=== PATIENT | female | born 1970 | race African-American/Black ===

== ENCOUNTER 2022-03-30 11:02 | Observation (INO) | payer OTHER ==
[2022-03-30] MEDS ORDERED: ONDANSETRON 4 MG/2 ML VIAL IVP STA (12:37)
[2022-03-30] MEDS ORDERED: diphenhydrAMINE 50 MG/ML 1 ML VIAL IVP STA ×3 (12:37→14:58)
[2022-03-30] MEDS ORDERED: MORPHINE SULFATE 4 MG/ML SYRINGE IV STA (12:37)
[2022-03-30] MEDS ORDERED: SODIUM CHLORIDE 0.9% 1,000 ML IV STA (12:37)
--- NOTE | 2022-03-30 12:48 | ED ---
General Adult HPI - General Chief complaint: Chest Pain Stated complaint: Chest pain Time Seen by Provider: 03/30/22 12:30 Source: patient, EMS, RN notes reviewed, old records reviewed Mode of arrival: EMS Limitations: no limitations - History of Present Illness Initial comments: Jeff is a 52-year-old female with past medical history remarkable for A. fib on eliquis, diabetes, hypertension, heart failure, possible MA 10 years ago, lupus presents emergency Department with 2 primary complaints. Initial, primary complaint is right-sided flank pain and abdominal pain with dysuria. She states she has had kidney stones before and this is what it is felt like in the past. Describes the pain as sharp, radiating towards her groin. Nurse's a burning sensation when she PT is. Uncertain of hematuria. Denies pain . Nurses mild nausea but no vomiting. No change in bowel habits. No shortness of breath, fevers, chills, cough. Patient does have a history cholecystectomy and hysterectomy. Patient is also complaining of a chest pressure sensation located over the left side of her chest occurred 2 hours prior to arrival. She did take nitro at that time with no change in symptoms. States the pain is improved at this time, however still mildly persistent. Denies any history of cardiac stents. His no other acute complaints at this time. Presents for further evaluation at this time. - Related Data Home Medications Medication Instructions Recorded Confirmed Apixaban [Eliquis] 5 mg PO BID 03/30/22 03/30/22 Aspirin 81 mg PO DAILY 03/30/22 03/30/22 Atorvastatin [Lipitor] 80 mg PO HS 03/30/22 03/30/22 Budesonide-Formot 160-4.5 Mcg 2 puff INHALATION RT-BID 03/30/22 03/30/22 [Symbicort 160-4.5 Mcg Inhaler] Carvedilol [Coreg] 25 mg PO BID 03/30/22 03/30/22 Colace 50mg 50 mg PO DAILY 03/30/22 03/30/22 DULoxetine HCL [Cymbalta] 30 mg PO DAILY 03/30/22 03/30/22 Diltiazem HCl [Cardizem CD] 120 mg PO DAILY 03/30/22 03/30/22 INSULIN LISPRO (HumaLOG) [humaLOG] 12 units SQ TID-W/MEALS 03/30/22 03/30/22 Insulin Glargine,Hum.rec.anlog 36 units SQ HS 03/30/22 03/30/22 [Lantus Solostar Pen] Isosorbide Mononitrate ER [Imdur] 30 mg PO DAILY 03/30/22 03/30/22 Levothyroxine Sodium [Synthroid] 50 mcg PO DAILY 03/30/22 03/30/22 Loratadine 10 mg PO DAILY 03/30/22 03/30/22 Lurasidone [Latuda] 20 mg PO BID 03/30/22 03/30/22 Mesalamine [Lialda] 2.4 gm PO DAILY 03/30/22 03/30/22 hydroCHLOROthiazide 25 mg PO DAILY 03/30/22 03/30/22 levETIRAcetam [Keppra] 1,000 mg PO BID 03/30/22 03/30/22 lisinopriL [Prinivil] 20 mg PO DAILY 03/30/22 03/30/22 traZODone HCL 150 mg PO HS 03/30/22 03/30/22 Allergies Allergy/AdvReac Type Severity Reaction Status Date / Time acetaminophen [From Tylenol] Allergy Anaphylaxis Verified 03/30/22 15:18 & Itching & Hives dicyclomine [From Bentyl] Allergy Anaphylaxis Verified 03/30/22 15:18 Fish Containing Products Allergy Anaphylaxis Verified 03/30/22 15:18 [Fish] & Itching & Hives ibuprofen [From Motrin] Allergy Anaphylaxis Verified 03/30/22 15:18 & Itching & Hives Iodinated Contrast Media Allergy Itching Verified 03/30/22 15:18 ketorolac [From Toradol] Allergy Anaphylaxis Verified 03/30/22 15:18 tramadol Allergy Anaphylaxis Verified 03/30/22 15:18 & Itching & Hives Review of Systems ROS Statement: Those systems with pertinent positive or pertinent negative responses have been documented in the HPI. Review of Systems: CONST: Denies fever EYES: Denies blurry vision ENT: Denies nasal congestion C/V: Endorses improving chest pain. RESP: Denies shortness of breath GI: Endorses Right flank pain. : Endorses dysuria SKIN: Denies rash. MSK: Denies joint pain. NEURO: Denies headache ROS Other: All systems not noted in ROS Statement are negative. Past Medical History Past Medical History: Atrial Fibrillation, Blood Disorder, Heart Failure, Diabetes Mellitus, Hypertension, Myocardial Infarction ([place]) Additional Past Medical History / Comment(s): factor 5, lupus , anemia History of Any Multi-Drug Resistant Organisms: None Reported Past Surgical History: Cholecystectomy, Hysterectomy Past Psychological History: No Psychological Hx Reported Smoking Status: Current every day smoker Past Alcohol Use History: Abuse, Daily Past Drug Use History: None Reported General Exam - General Exam Comments Initial Comments: General: Appears in mild distress secondary to right flank pain. HEAD: Normal with no signs of head trauma. EYES: PERRLA, EOMI, conjunctiva normal, no discharge. ENT: Hearing grossly intact, normal oropharynx. RESPIRATORY: Clear breath sounds bilaterally. No wheezes, rales, or rhonchi. C/V: Regular rate and rhythm. S1 and S2 auscultated, no edema, peripheral pulses 2+ and intact throughout. Chest pain is not reproducible on palpation. Chest pain is nonreproducible on the trunk or extremities. Patient has a right chest port for iron infusions. ABD: Abdomen is soft, nondistended. Mild tenderness palpation over the right flank. Mild right CVA tenderness to percussion. Mild suprapubic tenderness to palpation. No guarding. No peritoneal signs. No rebound tenderness. EXT: Normal range of motion, no obvious deformity SKIN: No rashes or lesions observed on exposed skin. NEURO: Alert and oriented 4. Limitations: no limitations Course Vital Signs 03/30/22 03/30/22 03/30/22 11:11 13:40 15:04 Temperature 97.7 F Pulse Rate 74 74 69 Respiratory 20 18 18 Rate Blood Pressure 114/59 111/64 146/84 O2 Sat by Pulse 99 98 100 Oximetry 03/30/22 16:34 Temperature 97.7 F Pulse Rate 78 Respiratory 18 Rate Blood Pressure 135/74 O2 Sat by Pulse 99 Oximetry Medical Decision Making - Medical Decision Making Based on the patient's presentation and physical exam, patient is having mild chest pain as well as right-sided flank pain. Concern for cardiopulmonary etiology as well as possible kidney stone or other abdominal pathology. We'll obtain abdominal labs as well as cardiac labs. She attempted nitro x3 at home with no effect. She'll be given IV morphine at her request. She also received aspirin. She was in agreement this plan. EKG showed no signs of acute ischemia.Patient's laboratory studies were unremarkable including a troponin that is undetectable, urinalysis that shows no signs of blood, relatively normal kidney function. Ultrasound showed no bladder or renal abnormality. Chest x-ray showed no acute cardiopulmonary process. On reevaluation come patient is requesting more pain medications for her right flank pain. Chest pain at this time is improved. I did get her on the results were normal workup. Due to his cut her cardiac history she will be admitted at least observation for monitoring, however we will obtain a CT abdomen and pelvis to ensure we are not missing an intra-abdominal process and she was in agreement this plan. She states she does have a history of ALLERGY to contrast dye, and therefore will be given pretreatment with famotidine, Benadryl, slightly Medrol. Shortly after completing the CT, patient stated that she was itchy all over, was feeling slightly short of breath. She no stridor, no tongue swelling, no wheezing, no rashes. She'll be given an additional 25 mg of Benadryl and observed. On reevaluation, patient is requesting more pain medication for abdomen. Chest pain is improved at this time. CT abdomen and pelvis revealed no acute intra- abdominal process. She did have an indeterminate right adrenal lesion which is unlikely the source of her pain. Recommend close follow-up. I discussed this with the patient. She also some stool burden which could be causing her abdominal pain from constipation. Discussed results with the patient and she expressed understanding. Patient will be admitted to observation telemetry at this time. I spoke with the admitting physician, Dr. Dinero who accepted the patient. - Lab Data Result diagrams: 03/30/22 12:42 03/30/22 12:42 Lab Results 03/30/22 03/30/22 03/30/22 Range/Units 12:42 12:42 12:42 WBC 4.4 (3.8-10.6) k/uL RBC 3.74 L (3.80-5.40) m/uL Hgb 11.7 (11.4-16.0) gm/dL Hct 35.6 (34.0-46.0) % MCV 95.1 (80.0-100.0) fL MCH 31.3 (25.0-35.0) pg MCHC 32.9 (31.0-37.0) g/dL RDW 13.1 (11.5-15.5) % Plt Count 270 (150-450) k/uL MPV 7.1 Neutrophils % 61 % Lymphocytes % 26 % Monocytes % 6 % Eosinophils % 3 % Basophils % 0 % Neutrophils # 2.7 (1.3-7.7) k/uL Lymphocytes # 1.2 (1.0-4.8) k/uL Monocytes # 0.3 (0-1.0) k/uL Eosinophils # 0.1 (0-0.7) k/uL Basophils # 0.0 (0-0.2) k/uL PT 9.9 (9.0-12.0) sec INR 0.9 (<1.2) APTT 26.7 (22.0-30.0) sec D-Dimer (<0.60) mg/L FEU Sodium (137-145) mmol/L Potassium (3.5-5.1) mmol/L Chloride (98-107) mmol/L Carbon Dioxide (22-30) mmol/L Anion Gap mmol/L BUN (7-17) mg/dL Creatinine (0.52-1.04) mg/dL Est GFR (CKD-EPI)AfAm (>60 ml/min/1.73 sqM) Est GFR (CKD-EPI)NonAf (>60 ml/min/1.73 sqM) Glucose (74-99) mg/dL Calcium (8.4-10.2) mg/dL Magnesium (1.6-2.3) mg/dL Total Bilirubin (0.2-1.3) mg/dL AST (14-36) U/L ALT (4-34) U/L Alkaline Phosphatase (38-126) U/L Troponin I (0.000-0.034) ng/mL Total Protein (6.3-8.2) g/dL Albumin (3.5-5.0) g/dL Amylase (30-110) U/L Lipase (23-300) U/L Urine Color Light Yellow Urine Appearance Clear (Clear) Urine pH 6.5 (5.0-8.0) Ur Specific [place] 1.013 (1.001-1.035) Urine Protein Negative (Negative) Urine Glucose (UA) Negative (Negative) Urine Ketones Negative (Negative) Urine Blood Negative (Negative) Urine Nitrite Negative (Negative) Urine Bilirubin Negative (Negative) Urine Urobilinogen <2.0 (<2.0) mg/dL Ur Leukocyte Esterase Negative (Negative) Urine HCG, Qual (Not Detectd) 03/30/22 03/30/22 03/30/22 Range/Units 12:42 12:42 12:42 WBC (3.8-10.6) k/uL RBC (3.80-5.40) m/uL Hgb (11.4-16.0) gm/dL Hct (34.0-46.0) % MCV (80.0-100.0) fL MCH (25.0-35.0) pg MCHC (31.0-37.0) g/dL RDW (11.5-15.5) % Plt Count (150-450) k/uL MPV Neutrophils % % Lymphocytes % % Monocytes % % Eosinophils % % Basophils % % Neutrophils # (1.3-7.7) k/uL Lymphocytes # (1.0-4.8) k/uL Monocytes # (0-1.0) k/uL Eosinophils # (0-0.7) k/uL Basophils # (0-0.2) k/uL PT (9.0-12.0) sec INR (<1.2) APTT (22.0-30.0) sec D-Dimer (<0.60) mg/L FEU Sodium 139 (137-145) mmol/L Potassium 4.2 (3.5-5.1) mmol/L Chloride 106 (98-107) mmol/L Carbon Dioxide 28 (22-30) mmol/L Anion Gap 5 mmol/L BUN 12 (7-17) mg/dL Creatinine 0.78 (0.52-1.04) mg/dL Est GFR (CKD-EPI)AfAm >90 (>60 ml/min/1.73 sqM) Est GFR (CKD-EPI)NonAf 89 (>60 ml/min/1.73 sqM) Glucose 75 (74-99) mg/dL Calcium 8.8 (8.4-10.2) mg/dL Magnesium 1.9 (1.6-2.3) mg/dL Total Bilirubin 0.3 (0.2-1.3) mg/dL AST 15 (14-36) U/L ALT 22 (4-34) U/L Alkaline Phosphatase 108 (38-126) U/L Troponin I <0.012 (0.000-0.034) ng/mL Total Protein 5.7 L (6.3-8.2) g/dL Albumin 3.4 L (3.5-5.0) g/dL Amylase 77 (30-110) U/L Lipase 64 (23-300) U/L Urine Color Urine Appearance (Clear) Urine pH (5.0-8.0) Ur Specific [place] (1.001-1.035) Urine Protein (Negative) Urine Glucose (UA) (Negative) Urine Ketones (Negative) Urine Blood (Negative) Urine Nitrite (Negative) Urine Bilirubin (Negative) Urine Urobilinogen (<2.0) mg/dL Ur Leukocyte Esterase (Negative) Urine HCG, Qual Not Detected (Not Detectd) 03/30/22 Range/Units 12:43 WBC (3.8-10.6) k/uL RBC (3.80-5.40) m/uL Hgb (11.4-16.0) gm/dL Hct (34.0-46.0) % MCV (80.0-100.0) fL MCH (25.0-35.0) pg MCHC (31.0-37.0) g/dL RDW (11.5-15.5) % Plt Count (150-450) k/uL MPV Neutrophils % % Lymphocytes % % Monocytes % % Eosinophils % % Basophils % % Neutrophils # (1.3-7.7) k/uL Lymphocytes # (1.0-4.8) k/uL Monocytes # (0-1.0) k/uL Eosinophils # (0-0.7) k/uL Basophils # (0-0.2) k/uL PT (9.0-12.0) sec INR (<1.2) APTT (22.0-30.0) sec D-Dimer <0.17 (<0.60) mg/L FEU Sodium (137-145) mmol/L Potassium (3.5-5.1) mmol/L Chloride (98-107) mmol/L Carbon Dioxide (22-30) mmol/L Anion Gap mmol/L BUN (7-17) mg/dL Creatinine (0.52-1.04) mg/dL Est GFR (CKD-EPI)AfAm (>60 ml/min/1.73 sqM) Est GFR (CKD-EPI)NonAf (>60 ml/min/1.73 sqM) Glucose (74-99) mg/dL Calcium (8.4-10.2) mg/dL Magnesium (1.6-2.3) mg/dL Total Bilirubin (0.2-1.3) mg/dL AST (14-36) U/L ALT (4-34) U/L Alkaline Phosphatase (38-126) U/L Troponin I (0.000-0.034) ng/mL Total Protein (6.3-8.2) g/dL Albumin (3.5-5.0) g/dL Amylase (30-110) U/L Lipase (23-300) U/L Urine Color Urine Appearance (Clear) Urine pH (5.0-8.0) Ur Specific [place] (1.001-1.035) Urine Protein (Negative) Urine Glucose (UA) (Negative) Urine Ketones (Negative) Urine Blood (Negative) Urine Nitrite (Negative) Urine Bilirubin (Negative) Urine Urobilinogen (<2.0) mg/dL Ur Leukocyte Esterase (Negative) Urine HCG, Qual (Not Detectd) - EKG Data -: EKG Interpreted by Me EKG Comments: 12-lead Electrocardiogram Interpretation Note EKG was reviewed and interpreted by myself. 12-lead ECG performed at 1110 is interpreted by me as revealing normal sinus rhythm at a rate of 67 beats per minute. [place] is normal. [place] interval is 193 ms, QRS duration is 96 ms, QTc is 402 ms.. There is an isolated T-wave inversion in lead III. Slight J-point elevation in lateral precordial leads. Otherwise no acute ST segment T wave abnormalities to suggest acute ischemia.. R wave progression across the precordium was satisfactory. By my interpretation this EKG is non-diagnostic for acute ischemia. No Prior EKG for comparison. Disposition Clinical Impression: Chest pain, Abdominal pain Disposition: ADMITTED IP TO THIS HOSP Condition: Stable Is patient prescribed a controlled substance at d/c from ED?: No Time of Disposition: 15:45
[2022-03-30 12:55] LABS: Basophils % (A) 0 %; Eosinophils # (A) 0.1 k/uL (0-0.7); Eosinophils % (A) 3 %; HCT 35.6 % (34.0-46.0); HGB 11.7 gm/dL (11.4-16.0); Lymphocytes # (A) 1.2 k/uL (1.0-4.8); Lymphocytes % (A) 26 %; MCH 31.3 pg (25.0-35.0); MCHC 32.9 g/dL (31.0-37.0); MCV 95.1 fL (80.0-100.0); Mean Platelet Volume 7.1; Monocytes # (A) 0.3 k/uL (0-1.0); Monocytes % (A) 6 %; Neutrophils # (A) 2.7 k/uL (1.3-7.7); Neutrophils % (A) 61 %; Platelet Count 270 k/uL (150-450); RBC 3.74 m/uL (3.80-5.40); RDW 13.1 % (11.5-15.5); WBC 4.4 k/uL (3.8-10.6)
[2022-03-30 13:02] LABS: INR 0.9 (<1.2)
--- NOTE | 2022-03-30 13:02 | XR ---
EXAMINATION TYPE: XR chest 2V DATE OF EXAM: 03/30/2022 COMPARISON: None HISTORY: Chest pain TECHNIQUE: Frontal and lateral views of the chest are obtained. FINDINGS: There is a Mediport catheter on the right tip of which is in the SVC/RA junction. The lungs are clear of consolidative, interstitial or masslike opacity. There is no pleural effusion, pleural thickening or pneumothorax. The heart, pulmonary vasculature, mediastinum and hilum are normal. The osseous structures are intact IMPRESSION: No acute cardiopulmonary process.
[2022-03-30 13:03] LABS: Partial Thromboplastin Time 26.7 sec (22.0-30.0); Prothrombin Time 9.9 sec (9.0-12.0)
[2022-03-30 13:04] LABS: Appearance,Urine Clear (Clear); Bilirubin,Urine Negative (Negative); Blood,Urine Negative (Negative); Color,Urine Light Yellow; Glucose,Urine (UA) Negative (Negative); Ketones,Urine Negative (Negative); Leukocyte Esterase,Urine Negative (Negative); Nitrite,Urine Negative (Negative); PH, Urine 6.5 (5.0-8.0); Protein,Urine Negative (Negative); Specific Gravity,Urine 1.013 (1.001-1.035); Urobilinogen,Urine <2.0 mg/dL (<2.0)
[2022-03-30 13:10] LABS: ALT 22 U/L (4-34); AST 15 U/L (14-36); African American GFR (CKD) >90 (>60 ml/min/1.73 sqM); Albumin 3.4 g/dL (3.5-5.0); Alkaline Phosphatase 108 U/L (38-126); Amylase 77 U/L (30-110); Anion Gap 5 mmol/L; Blood Urea Nitrogen 12 mg/dL (7-17); Calcium 8.8 mg/dL (8.4-10.2); Carbon Dioxide 28 mmol/L (22-30); Chloride 106 mmol/L (98-107); Glucose 75 mg/dL (74-99); Lipase 64 U/L (23-300); Magnesium 1.9 mg/dL (1.6-2.3); Non-African American GFR(CKD) 89 (>60 ml/min/1.73 sqM); Potassium 4.2 mmol/L (3.5-5.1); Sodium 139 mmol/L (137-145); Total Bilirubin 0.3 mg/dL (0.2-1.3); Total Protein 5.7 g/dL (6.3-8.2)
--- NOTE | 2022-03-30 13:45 | US ---
EXAMINATION TYPE: US renals and bladder DATE OF EXAM: 03/30/2022 COMPARISON: NONE CLINICAL HISTORY: left sided flank pain, eval for hydronephrosis. Hx renal stones. EXAM MEASUREMENTS: Right Kidney: 8.6 x 4.0 x 3.7 cm Left Kidney: 9.8 x 4.9 x 4.0 cm Limited due to bowel gas Right Kidney: No hydronephrosis or masses seen Left Kidney: No hydronephrosis or masses seen Bladder: distended, anechoic Bilateral Jets not seen There is no evidence for hydronephrosis at this point in time. No nephrolithiasis is seen. No alden s are identified. The urinary bladder is anechoic. IMPRESSION: No renal calcifications or hydronephrosis.
[2022-03-30] MEDS ORDERED: MORPHINE SULFATE 4 MG/ML SYRINGE IVP STA (13:53)
[2022-03-30] MEDS ORDERED: methylPREDNISolone SOD SUCCI 125 MG/2 ML VIAL IV STA (13:53)
[2022-03-30] MEDS ORDERED: FAMOTIDINE 20 MG/2 ML VIAL IV STA (13:53)
--- NOTE | 2022-03-30 15:38 | CT ---
EXAMINATION TYPE: CT abdomen pelvis w con CT DLP: 1703.3 mGycm, Automated exposure control for dose reduction was used. DATE OF EXAM: 03/30/2022 3:10 PM COMPARISON: None CLINICAL INDICATION:Female, 52 years old with history of abdominal pain, acute, right flank/RLQ; Righ t flank pain TECHNIQUE: Standard CT of the abdomen and pelvis following the administration of 100 cc of Isovue 3 00 IV contrast material. Coronal and sagittal reformats were performed. FINDINGS: LOWER CHEST: Unremarkable ABDOMEN LIVER: Unremarkable GALLBLADDER AND BILE DUCTS: Gallbladder is surgically absent with mild intrahepatic and extra hepatic biliary dilatation likely physiologic and a postcholecystectomy change. No evidence of choledocholit hiasis. PANCREAS: Unremarkable. SPLEEN: Unremarkable. ADRENAL GLANDS: Indeterminate right adrenal lesion measures 17 mm and 22 Hounsfield units. The left a drenal gland is unremarkable. KIDNEYS AND URETERS: No evidence of hydronephrosis or renal calculus. The ureters are unremarkable. PELVIS BLADDER: Unremarkable REPRODUCTIVE: Unremarkable. ABDOMEN & PELVIS STOMACH AND BOWEL: There is a large stool burden throughout the cecum, ascending colon and transverse colon. No evidence of bowel obstruction. Appendix is normal. PERITONEUM: No evidence of pneumoperitoneum or free fluid. VASCULATURE: Mild atherosclerotic calcifications are present throughout the abdominal aorta and its b ranches. MUSCULOSKELETAL: Mild disc degeneration changes are present throughout the thoracolumbar spine.. LYMPH NODES: No gross evidence for lymphadenopathy. SOFT TISSUE/ABDOMINAL WALL: Multiple some injection granulomata within the anterior soft tissues. IMPRESSION: 1. No evidence for appendicitis or obstructive uropathy. Large stool burden throughout the predomina ntly right colon. 2. Indeterminate right adrenal lesion statistically likely represent benign adrenal lipid rich adeno ma in a patient without risk factors. This can be further evaluated with CT/MRI adrenal mass protocol .
[2022-03-30] MEDS ORDERED: NALOXONE 0.4 MG/ML 1 ML VIAL IV PRN (15:59)
[2022-03-30] MEDS ORDERED: SODIUM CHLORIDE 0.9% 1,000 ML IV SCH (16:00)
[2022-03-30] MEDS: MORPHINE SULFATE 4 MG/ML SYRINGE IV PRN ×2 (16:36→20:26)
--- NOTE | 2022-03-30 16:59 | P.HPIM ---
History of Present Illness H&P Date: 03/31/22 Chief Complaint: Chest pain This 52-year-old black female who reported to the hospital with chest pain. She is presently pain as substernal, moderate in severity, sharp. Pain has been improved and decreased to 3/10. She denies shortness of breath. She also reports abdominal pain described as flank and abdomen radiating to the groin area mostly on the right side. She states that she has history of kidney stones and this appears to be similar. She also reports an episode of nausea and vomiting. She reports a temperature 100 at home. She denies dizziness or loss of consciousness. At the time of examination patient appears to be comfortable and does not appear to be in distress. Review of Systems Systems reviewed, pertinent positive and negative findings as in HPI. Chest pain and abdominal pain. Past Medical History Past Medical History: Atrial Fibrillation, Blood Disorder, Heart Failure, Diabetes Mellitus, Hypertension, Myocardial Infarction ([place]) Additional Past Medical History / Comment(s): factor 5, lupus , anemia History of Any Multi-Drug Resistant Organisms: None Reported Past Surgical History: Cholecystectomy, Hysterectomy Past Psychological History: No Psychological Hx Reported Smoking Status: Current every day smoker Past Alcohol Use History: Abuse, Daily Past Drug Use History: None Reported Medications and Allergies Home Medications Medication Instructions Recorded Confirmed Type Apixaban [Eliquis] 5 mg PO BID 03/30/22 03/30/22 History Aspirin 81 mg PO DAILY 03/30/22 03/30/22 History Atorvastatin [Lipitor] 80 mg PO HS 03/30/22 03/30/22 History Budesonide-Formot 160-4.5 Mcg 2 puff INHALATION RT-BID 03/30/22 03/30/22 History [Symbicort 160-4.5 Mcg Inhaler] Carvedilol [Coreg] 25 mg PO BID 03/30/22 03/30/22 History Colace 50mg 50 mg PO DAILY 03/30/22 03/30/22 History DULoxetine HCL [Cymbalta] 30 mg PO DAILY 03/30/22 03/30/22 History Diltiazem HCl [Cardizem CD] 120 mg PO DAILY 03/30/22 03/30/22 History INSULIN LISPRO (HumaLOG) [humaLOG] 12 units SQ TID-W/MEALS 03/30/22 03/30/22 History Insulin Glargine,Hum.rec.anlog 36 units SQ HS 03/30/22 03/30/22 History [Lantus Solostar Pen] Isosorbide Mononitrate ER [Imdur] 30 mg PO DAILY 03/30/22 03/30/22 History Levothyroxine Sodium [Synthroid] 50 mcg PO DAILY 03/30/22 03/30/22 History Loratadine 10 mg PO DAILY 03/30/22 03/30/22 History Lurasidone [Latuda] 20 mg PO BID 03/30/22 03/30/22 History Mesalamine [Lialda] 2.4 gm PO DAILY 03/30/22 03/30/22 History hydroCHLOROthiazide 25 mg PO DAILY 03/30/22 03/30/22 History levETIRAcetam [Keppra] 1,000 mg PO BID 03/30/22 03/30/22 History lisinopriL [Prinivil] 20 mg PO DAILY 03/30/22 03/30/22 History traZODone HCL 150 mg PO HS 03/30/22 03/30/22 History Allergies Allergy/AdvReac Type Severity Reaction Status Date / Time acetaminophen [From Tylenol] Allergy Anaphylaxis Verified 03/30/22 15:18 & Itching & Hives dicyclomine [From Bentyl] Allergy Anaphylaxis Verified 03/30/22 15:18 Fish Containing Products Allergy Anaphylaxis Verified 03/30/22 15:18 [Fish] & Itching & Hives ibuprofen [From Motrin] Allergy Anaphylaxis Verified 03/30/22 15:18 & Itching & Hives Iodinated Contrast Media Allergy Itching Verified 03/30/22 15:18 ketorolac [From Toradol] Allergy Anaphylaxis Verified 03/30/22 15:18 tramadol Allergy Anaphylaxis Verified 03/30/22 15:18 & Itching & Hives Physical Exam Vitals: Vital Signs Temp Pulse Resp BP Pulse Ox 03/30/22 16:34 97.7 F 78 18 135/74 99 03/30/22 15:04 69 18 146/84 100 03/30/22 13:40 74 18 111/64 98 03/30/22 11:11 97.7 F 74 20 114/59 99 Intake and Output 03/30/22 03/30/22 03/30/22 06:59 14:59 22:59 Other: Weight 99.79 kg Constitutional: No acute distress, conversant, pleasant Eyes: Anicteric sclerae, moist conjunctiva, no lid-lag, PERRLA ENMT: NC/AT,Oropharynx clear, no erythema, exudates Neck:Supple, FROM, no masses, or JVD, No carotid bruits; No thyromegaly Lungs: Clear to auscultation, Clear to percussion, Normal respiratory effort, no accessory muscle use Cardiovascular: Heart regular in rate and rhythm, No murmurs, gallops, or rubs no peripheral edema Abdominal: Soft Nontender, non distended, no guarding, no rebound or rigidity, Normoactive bowel sounds No hepatomegaly, No splenomegaly, No palpable mass Skin: Normal temperature, tone, texture, turgor, No induration Extremities:No digital cyanosis No clubbing, Pedal pulses intact and symmetrical Radial pulses intact and symmetrical Normal gait and station, No calf tenderness Psychiatric: Alert and oriented to person, place and time, Appropriate affect Intact judgement Neuro: Muscles Strength 5/5 in all 4 extremities, Sensation to light touch grossly present throughout, Cranial nerves II-XII grossly intact. No focal sensory deficits Results CBC & Chem 7: 03/30/22 12:42 03/30/22 12:42 Labs: Abnormal Lab Results - Last 24 Hours (Table) 03/30/22 03/30/22 Range/Units 12:42 12:42 RBC 3.74 L (3.80-5.40) m/uL Total Protein 5.7 L (6.3-8.2) g/dL Albumin 3.4 L (3.5-5.0) g/dL Assessment and Plan Plan: 1. Chest pain likely atypical: Negative troponin, continue on telemetry, continue to check cardiac enzymes. Check d-dimer. If needed We will consult with cardiology. 2. Right flank pain unspecified etiology: Abdominal CT consistent with large stool burden, continue supportive care. Start lactulose. No evidence of a colicky attack. 3. Suspected benign adrenal adenoma: Follow-up as an outpatient 4. Diabetes type 1 without complications: Continue on insulin, she is on insulin pump. Continue on sliding scale. 5. Chronic fibrillation: Continue adequacy and aspirin and Cardizem. 6. essential hypertension: Continue lisinopril, HCTZ and Cardizem. 7. Hypothyroidism: Continue Synthroid 8. History of SLE: Follow-up as an outpatient. 9. Hyperlipidemia: Continue statin 10. Depression: Continue Cymbalta DVT prophylaxis: SCDs Disposition: Home likely tomorrow if remains stable.
[2022-03-30 17:34] LABS: Glucose,Whole Blood 210 mg/dL (75-99)
[2022-03-30] MEDS: diphenhydrAMINE 50 MG/ML 1 ML VIAL IVP PRN (19:38)
[2022-03-30] MEDS: INSULIN DETEMIR (LEVEMIR) 100 UNIT/ML SYR SQ SCH (19:41)
[2022-03-30] MEDS: INSULIN ASPART (NovoLOG) 100 UNIT/ML VIAL SQ SCH ×3 (19:41→19:43)
[2022-03-30] MEDS: LACTULOSE 20 GM/30 ML CUP PO SCH (19:42)
[2022-03-30] MEDS: SYMBICORT 160-4.5 MCG INHALER INHALATION SCH (20:00)
[2022-03-30] MEDS: APIXABAN 5 MG TAB PO SCH (20:25)
[2022-03-30] MEDS: levETIRAcetam 500 MG TAB PO SCH (20:25)
[2022-03-30] MEDS: LURASIDONE 20 MG TAB PO SCH (20:25)
[2022-03-30] MEDS: carvediloL 12.5 MG TAB PO SCH (20:25)
[2022-03-30] MEDS: ATORVASTATIN 80 MG TAB PO SCH (20:25)
[2022-03-30] MEDS: traZODone HCL 50 MG TAB PO SCH (20:27)
[2022-03-30] MEDS: LORATADINE 10 MG TAB PO SCH ×2 (20:32→20:33)
[2022-03-30] MEDS: DOCUSATE ORAL SOLN 100 MG/10 ML CUP PO SCH (20:33)
[2022-03-30 21:38] LABS: Glucose,Whole Blood 470 mg/dL (75-99)
[2022-03-31] MEDS: MORPHINE SULFATE 4 MG/ML SYRINGE IV PRN ×6 (00:24→23:36)
[2022-03-31] MEDS: diphenhydrAMINE 50 MG/ML 1 ML VIAL IVP PRN ×4 (01:17→19:34)
--- NOTE | 2022-03-31 07:18 | XR ---
Left knee HISTORY: Pain following fall. COMPARISON: None. TECHNIQUE: 3 views left knee were obtained FINDINGS: There is no acute trauma with no evidence of fracture or dislocation. There is mild osteoarthritic change of the medial and lateral compartments of the knee were there is mild hypertrophic spurring and possibly mild joint space narrowing. There are no focal intraosseous a bnormalities. IMPRESSION: 1. Mild osteoarthritic change. 2. no evidence of acute trauma.
[2022-03-31 07:19] LABS: Glucose,Whole Blood 524 mg/dL (75-99)
--- NOTE | 2022-03-31 07:19 | XR ---
Left humerus. HISTORY: Trauma COMPARISON: None. TECHNIQUE: 3 views left humerus are obtained. FINDINGS: There is no fracture or focal intraosseous abnormality. The cortex is intact. There is no radiopaque foreign body or abnormal soft tissue calcification. IMPRESSION: No significant abnormality seen.
--- NOTE | 2022-03-31 07:21 | XR ---
Left hip HISTORY: Trauma COMPARISON: None TECHNIQUE: 2 views left hip were obtained. FINDINGS: There is no fracture, dislocation, intraosseous or intra-articular abnormality. The soft tissues are normal. IMPRESSION: No significant abnormality seen.
--- NOTE | 2022-03-31 07:23 | CT ---
EXAMINATION TYPE: CT brain wo con DATE OF EXAM: 03/31/2022 COMPARISON: None HISTORY: Fall CT DLP: 981.7 mGycm Automated exposure control for dose reduction was used. FINDINGS: The ventricles, basal cisterns and sulci over the convexities are within normal limits and there is n o mass effect or shift of the midline structures. There is no abnormal density within the brain parenchyma and there is no acute intra or extra-axial h emorrhage. The posterior fossa is grossly normal. The intraorbital contents appear normal and symmetric. Paranasal sinuses and mastoid air cells are well aerated. The calvarium is intact IMPRESSION: NO SIGNIFICANT ABNORMALITY SEEN.
[2022-03-31] MEDS: LEVOTHYROXINE 50 MCG TAB PO SCH (07:28)
[2022-03-31] MEDS: INSULIN ASPART (NovoLOG) 100 UNIT/ML VIAL SQ SCH ×7 (07:32→20:19)
[2022-03-31] MEDS ORDERED: MORPHINE SULFATE 2 MG/ML SYRINGE IVP STA (07:34)
[2022-03-31] MEDS: DOCUSATE ORAL SOLN 100 MG/10 ML CUP PO SCH (08:48)
[2022-03-31] MEDS: DILTIAZEM CD 120 MG CAP.ER.24H PO SCH (08:48)
[2022-03-31] MEDS: BALSALAZIDE DISODIUM 750 MG CAPSULE PO SCH ×3 (08:48→19:33)
[2022-03-31] MEDS: ISOSORBIDE MONONITRATE ER 30 MG TAB.ER.24H PO SCH (08:49)
[2022-03-31] MEDS: APIXABAN 5 MG TAB PO SCH ×2 (08:49→19:30)
[2022-03-31] MEDS: DULoxetine HCL 30 MG CAPSULE.DR PO SCH (08:49)
[2022-03-31] MEDS: ASPIRIN 81 MG PO SCH (08:49)
[2022-03-31] MEDS: carvediloL 12.5 MG TAB PO SCH ×2 (08:49→19:30)
[2022-03-31] MEDS: levETIRAcetam 500 MG TAB PO SCH ×2 (08:49→19:31)
[2022-03-31] MEDS: LURASIDONE 20 MG TAB PO SCH ×2 (08:49→19:31)
[2022-03-31] MEDS: LACTULOSE 20 GM/30 ML CUP PO SCH ×2 (08:50→19:31)
[2022-03-31] MEDS: lisinopriL 20 MG TAB PO SCH (08:50)
[2022-03-31] MEDS: SYMBICORT 160-4.5 MCG INHALER INHALATION SCH ×2 (09:22→20:13)
[2022-03-31] MEDS: hydroCHLOROthiazide 25 MG TAB PO SCH (10:33)
--- NOTE | 2022-03-31 11:09 | P.CRDCN ---
History of Present Illness Consult date: 03/31/22 Consult reason: chest pain History of present illness: This is Benajmin Oseguera NP, I'm dictating on behalf of Dr. Blackmon's H&P and A&P The patient was interviewed and examined. HPI: Patient is a pleasant 52-year-old female who initially presented to the hospital with complaints of flank abdominal pain, with intermittent chest pain. Patient states that she started with abdominal pain a couple days ago, and in the emergency department to determine that she must have a small kidney stone. She also states that she's had chest pain since yesterday, with subsequent left arm intermittent numbness, with pressure under her left breast. Patient has a past medical history that includes A. fib, diabetes, hypertension, heart failure, possible [place], Lupus, and history of substance use. Patient reports today that she's continues to have the arm numbness and pressure under her breast. She denies shortness of breath, dizziness, syncope, or blurry vision. ROS: [No fever, chills, or rigors] [no cough, phlegm, or expectoration] [no nausea, vomiting, or diarrhea] [no hematuria, dysuria] [no musculoskelatal complaints] [no strokes or seizures] [no skin lesions] EXAMINATION: GENERAL: Well-appearing, well-nourished and in no acute distress. NECK: Supple without JVD or thyromegaly. LUNGS: Breath sounds clear to auscultation bilaterally. Respiration equal and unlabored. No wheezes, rales or rhonchi. HEART: Regular rate and rhythm without murmurs, rubs or gallops. S1 and S2 heard. EXTREMITIES: Normal range of motion, no edema. No clubbing or cyanosis. Peripheral pulses intact and strong. REVIEW OF LABS, ECG & MEDICAL DATA: LABS: White count 4.4, hemoglobin 11.7, d-dimer less than 0.17, sodium 139, potassium 4.2, B1 12, creatinine 0.78, magnesium 1.9, troponin 3-less than 0.012 EKG: Normal sinus rhythm IMAGING: Chest x-ray dated 03/30/2022 demonstrates no acute cardio pulmonate process. Renal ultrasound dated 03/30/2022 demonstrates no renal calcifications or hydronephrosis. CT of the abdomen/pelvis dated 03/30/2022 demonstrates no evidence for appendicitis or obstructive uropathy, large stool burden throughout the predominantly right colon; indeterminate right adrenal lesion statistically likely representing benign adrenal lipid rich adenoma in a patient without risk factors. Left knee x-ray dated 03/31/2022 demonstrates mild osteoarthritic changes, with no evidence of acute trauma. X-ray of the left humerus stated 03/31/2022 demonstrates no significant abnormality seen. X-ray of the left hip dated 03/31/2022 demonstrates no significant abnormality seen. CT of the brain dated 03/31/2022 demonstrates no significant abnormality seen. VITALS: Temp 97.9, pulse 91, blood pressure 136/70, O2 saturation 98% on room air IMPRESSION/PLAN: 1. Chest pain-atypical in nature, no criteria for acute [place] secondary to negative troponins and no EKG changes. We'll schedule for a dobutamine stress test tomorrow morning. Recheck troponin in a.m. Continue Imdur. 2. Hypertension-continue lisinopril as ordered. 3. History of pulmonary embolism-continue apixaban, aspirin as ordered. 4. Atrial fibrillation-continue carvedilol and diltiazem as ordered. Thank you for the consult and allowing us to participate in the care of this patient. Past Medical History Past Medical History: Atrial Fibrillation, Blood Disorder, Heart Failure, Diabetes Mellitus, Hypertension, Myocardial Infarction (TN) Additional Past Medical History / Comment(s): factor 5, lupus , anemia Last Myocardial Infarction Date:: unk History of Any Multi-Drug Resistant Organisms: None Reported Past Surgical History: Cholecystectomy, Hysterectomy Past Psychological History: No Psychological Hx Reported Smoking Status: Current every day smoker Past Alcohol Use History: Abuse, Daily Past Drug Use History: None Reported Medications and Allergies Home Medications Medication Instructions Recorded Confirmed Type Apixaban [Eliquis] 5 mg PO BID 03/30/22 03/30/22 History Aspirin 81 mg PO DAILY 03/30/22 03/30/22 History Atorvastatin [Lipitor] 80 mg PO HS 03/30/22 03/30/22 History Budesonide-Formot 160-4.5 Mcg 2 puff INHALATION RT-BID 03/30/22 03/30/22 History [Symbicort 160-4.5 Mcg Inhaler] Carvedilol [Coreg] 25 mg PO BID 03/30/22 03/30/22 History Colace 50mg 50 mg PO DAILY 03/30/22 03/30/22 History DULoxetine HCL [Cymbalta] 30 mg PO DAILY 03/30/22 03/30/22 History Diltiazem HCl [Cardizem CD] 120 mg PO DAILY 03/30/22 03/30/22 History INSULIN LISPRO (HumaLOG) [humaLOG] 12 units SQ TID-W/MEALS 03/30/22 03/30/22 History Insulin Glargine,Hum.rec.anlog 36 units SQ HS 03/30/22 03/30/22 History [Lantus Solostar Pen] Isosorbide Mononitrate ER [Imdur] 30 mg PO DAILY 03/30/22 03/30/22 History Levothyroxine Sodium [Synthroid] 50 mcg PO DAILY 03/30/22 03/30/22 History Loratadine 10 mg PO DAILY 03/30/22 03/30/22 History Lurasidone [Latuda] 20 mg PO BID 03/30/22 03/30/22 History Mesalamine [Lialda] 2.4 gm PO DAILY 03/30/22 03/30/22 History hydroCHLOROthiazide 25 mg PO DAILY 03/30/22 03/30/22 History levETIRAcetam [Keppra] 1,000 mg PO BID 03/30/22 03/30/22 History lisinopriL [Prinivil] 20 mg PO DAILY 03/30/22 03/30/22 History traZODone HCL 150 mg PO HS 03/30/22 03/30/22 History Allergies Allergy/AdvReac Type Severity Reaction Status Date / Time acetaminophen [From Tylenol] Allergy Anaphylaxis Verified 03/30/22 15:18 & Itching & Hives dicyclomine [From Bentyl] Allergy Anaphylaxis Verified 03/30/22 15:18 Fish Containing Products Allergy Anaphylaxis Verified 03/30/22 15:18 [Fish] & Itching & Hives ibuprofen [From Motrin] Allergy Anaphylaxis Verified 03/30/22 15:18 & Itching & Hives Iodinated Contrast Media Allergy Itching Verified 03/30/22 15:18 ketorolac [From Toradol] Allergy Anaphylaxis Verified 03/30/22 15:18 tramadol Allergy Anaphylaxis Verified 03/30/22 15:18 & Itching & Hives Physical Exam Vitals: Vital Signs Temp Pulse Pulse Resp BP BP Pulse Ox 03/31/22 07:00 97.9 F 91 20 136/70 98 03/31/22 02:20 97.9 F 95 17 121/81 97 03/30/22 20:00 91 03/30/22 19:35 97.4 F L 91 18 155/79 95 03/30/22 17:29 97.6 F 80 17 151/88 94 L 03/30/22 16:34 97.7 F 78 18 135/74 99 03/30/22 15:04 69 18 146/84 100 03/30/22 13:40 74 18 111/64 98 03/30/22 11:11 97.7 F 74 20 114/59 99 Intake and Output 03/30/22 03/31/22 03/31/22 22:59 06:59 14:59 Intake Total 120 Balance 120 Intake: Oral 120 Other: # Voids 1 1 0 Weight 99.79 kg Results 03/30/22 12:42 03/30/22 12:42 Cardiac Enzymes 03/30/22 03/30/22 03/30/22 Range/Units 12:42 12:42 17:14 AST 15 (14-36) U/L Troponin I <0.012 <0.012 (0.000-0.034) ng/mL 03/30/22 Range/Units 20:27 AST (14-36) U/L Troponin I <0.012 (0.000-0.034) ng/mL Coagulation 03/30/22 Range/Units 12:42 PT 9.9 (9.0-12.0) sec APTT 26.7 (22.0-30.0) sec CBC 03/30/22 Range/Units 12:42 WBC 4.4 (3.8-10.6) k/uL RBC 3.74 L (3.80-5.40) m/uL Hgb 11.7 (11.4-16.0) gm/dL Hct 35.6 (34.0-46.0) % Plt Count 270 (150-450) k/uL Comprehensive Metabolic Panel 03/30/22 Range/Units 12:42 Sodium 139 (137-145) mmol/L Potassium 4.2 (3.5-5.1) mmol/L Chloride 106 (98-107) mmol/L Carbon Dioxide 28 (22-30) mmol/L BUN 12 (7-17) mg/dL Creatinine 0.78 (0.52-1.04) mg/dL Glucose 75 (74-99) mg/dL Calcium 8.8 (8.4-10.2) mg/dL AST 15 (14-36) U/L ALT 22 (4-34) U/L Alkaline Phosphatase 108 (38-126) U/L Total Protein 5.7 L (6.3-8.2) g/dL Albumin 3.4 L (3.5-5.0) g/dL Current Medications Generic Name Dose Route Start Last Admin Trade Name Freq PRN Reason Stop Dose Admin Apixaban 5 mg 03/30/22 21:00 03/31/22 08:49 Apixaban 5 Mg Tab PO 5 mg BID MIGNON Administration Protocol Aspirin 81 mg 03/31/22 09:00 03/31/22 08:49 Aspirin 81 Mg PO 81 mg DAILY MIGNON Administration Atorvastatin Calcium 80 mg 03/30/22 21:00 03/30/22 20:25 Atorvastatin 80 Mg Tab PO 80 mg HS MIGNON Administration Balsalazide 2,250 mg 03/31/22 09:00 03/31/22 08:48 Balsalazide Disodium 750 Mg Capsule PO 2,250 mg TID MIGNON Administration Budesonide/Formoterol Fumarate 2 puff 03/30/22 20:00 03/31/22 09:22 Symbicort 160-4.5 Mcg Inhaler INHALATION 2 puff RT-BID MIGNON Administration Carvedilol 25 mg 03/30/22 21:00 03/31/22 08:49 Carvedilol 12.5 Mg Tab PO 25 mg BID MIGNON Administration Diltiazem HCl 120 mg 03/31/22 09:00 03/31/22 08:48 Diltiazem Cd 120 Mg Cap.Er.24h PO 120 mg DAILY MIGNON Administration Diphenhydramine HCl 25 mg 03/30/22 19:32 03/31/22 07:17 Diphenhydramine 50 Mg/Ml 1 Ml Vial IVP 25 mg Q6HR PRN Administration Allergy Symptoms Docusate Sodium 50 mg 03/30/22 17:00 03/31/22 08:48 Docusate Oral Soln 100 Mg/10 Ml Cup PO 50 mg DAILY MGINON Administration Duloxetine HCl 30 mg 03/31/22 09:00 03/31/22 08:49 Duloxetine Hcl 30 Mg Capsule.Dr PO 30 mg DAILY MIGNON Administration Hydrochlorothiazide 25 mg 03/31/22 09:00 Hydrochlorothiazide 25 Mg Tab PO DAILY [facility] Insulin Aspart 12 unit 03/30/22 17:30 03/31/22 07:32 Insulin Aspart (Novolog) 100 Unit/Ml Vial SQ Not Given TID-W/MEALS [facility] Insulin Aspart 0 unit 03/30/22 17:30 03/31/22 07:32 Insulin Aspart (Novolog) 100 Unit/Ml Vial SQ 13.9 unit ACHS [facility] Administration Protocol Insulin Detemir 36 unit 03/30/22 21:00 03/30/22 19:41 Insulin Detemir (Levemir) 100 Unit/Ml Syr SQ Not Given HS [facility] Isosorbide Mononitrate 30 mg 03/31/22 09:00 03/31/22 08:49 Isosorbide Mononitrate Er 30 Mg Tab.Er.24h PO 30 mg DAILY MIGNON Administration Lactulose 20 gm 03/30/22 21:00 03/31/22 08:50 Lactulose 20 Gm/30 Ml Cup PO Not Given BID MIGNON Levetiracetam 1,000 mg 03/30/22 21:00 03/31/22 08:49 Levetiracetam 500 Mg Tab PO 1,000 mg BID MIGNON Administration Levothyroxine Sodium 50 mcg 03/31/22 06:30 03/31/22 07:28 Levothyroxine 50 Mcg Tab PO 50 mcg DAILY@0630 [facility] Administration Lisinopril 20 mg 03/31/22 09:00 03/31/22 08:50 Lisinopril 20 Mg Tab PO 20 mg DAILY [facility] Administration Loratadine 10 mg 03/30/22 17:00 03/30/22 20:33 Loratadine 10 Mg Tab PO 10 mg DAILY [facility] Administration Lurasidone HCl 20 mg 03/30/22 21:00 03/31/22 08:49 Lurasidone 20 Mg Tab PO 20 mg BID MIGNON Administration Morphine Sulfate 4 mg 03/30/22 15:59 03/31/22 04:19 Morphine Sulfate 4 Mg/Ml Syringe IV 4 mg Q4HR PRN Administration Severe Pain Naloxone HCl 0.2 mg 03/30/22 15:59 Naloxone 0.4 Mg/Ml 1 Ml Vial IV Q2M PRN Opioid Reversal Trazodone HCl 150 mg 03/30/22 21:00 03/30/22 20:27 Trazodone Hcl 50 Mg Tab PO Not Given HS MIGNON Intake and Output 03/30/22 03/31/22 03/31/22 22:59 06:59 14:59 Intake Total 120 Balance 120 Intake: Oral 120 Other: # Voids 1 1 0 Weight 99.79 kg 03/30/22 12:42 03/30/22 12:42
[2022-03-31 11:50] LABS: Glucose,Whole Blood 488 mg/dL (75-99)
[2022-03-31 11:58] LABS: Basophils % (A) 0 %; Eosinophils % (A) 0 %; HCT 34.9 % (34.0-46.0); HGB 11.3 gm/dL (11.4-16.0); Lymphocytes # (A) 0.3 k/uL (1.0-4.8); Lymphocytes % (A) 3 %; MCH 31.6 pg (25.0-35.0); MCHC 32.2 g/dL (31.0-37.0); MCV 98.1 fL (80.0-100.0); Monocytes # (A) 0.3 k/uL (0-1.0); Monocytes % (A) 3 %; Neutrophils # (A) 8.9 k/uL (1.3-7.7); Neutrophils % (A) 92 %; Platelet Count 275 k/uL (150-450); RBC 3.56 m/uL (3.80-5.40); WBC 9.7 k/uL (3.8-10.6)
[2022-03-31 12:06] LABS: ALT 27 U/L (4-34); AST 22 U/L (14-36); African American GFR (CKD) >90 (>60 ml/min/1.73 sqM); Albumin 3.6 g/dL (3.5-5.0); Albumin/Globulin Ratio 1.5; Alkaline Phosphatase 175 U/L (38-126); Anion Gap 10 mmol/L; Blood Urea Nitrogen 12 mg/dL (7-17); Calcium 8.8 mg/dL (8.4-10.2); Carbon Dioxide 22 mmol/L (22-30); Chloride 100 mmol/L (98-107); Globulin 2.4 g/dL; Glucose 438 mg/dL (74-99); Non-African American GFR(CKD) 90 (>60 ml/min/1.73 sqM); Potassium 4.7 mmol/L (3.5-5.1); Sodium 132 mmol/L (137-145); Total Bilirubin 0.3 mg/dL (0.2-1.3)
--- NOTE | 2022-03-31 16:27 | P.PN ---
Subjective Progress Note Date: 03/31/22 52-year-old female lives in [facility] she was here at [facility] for alcohol detox. who initially presented to the hospital with complaints of flank abdominal pain, with intermittent chest pain. Patient states that she started with abdominal pain a couple days ago, and in the emergency department to determine that she must have a small kidney stone. She also states that she's had chest pain since yesterday, with subsequent left arm intermittent numbness, with pressure under her left breast. Patient has a past medical history that includes A. fib, diabetes, hypertension, heart failure, possible [place], Lupus, and history of substance use. Patient reports today that she's continues to have the arm numbness and pressure under her breast. She denies shortness of breath, dizziness, syncope, or blurry vision. Subjective Patient seen and evaluated at bedside, today patient does not report any worsening of his breathing or report any new significant chest pain. Patient remains in no acute distress. Patient questions and concerns addressed at bedside, proper counseling done. Plan discussed with nursing staff. Assessment and plan Chest pain Atypical in nature, no criteria for acute [place] secondary to negative troponins and no EKG changes. We'll schedule for a dobutamine stress test tomorrow morning. Recheck troponin in a.m. Continue medical management Cardiology consulted History of alcohol abuse Patient was at [facility] for alcohol detox, patient has history of drinking 4-5 beers a day Watch for withdrawal symptoms Atrial fibrillation Continue carvedilol and diltiazem as ordered. Continue Eliquis Hypertension Continue lisinopril as ordered. History of pulmonary embolism Continue apixaban, aspirin as ordered. Tobacco abuse Patient smokes about 5 cigarettes a day Counseling regarding smoking cessation DVT prophylaxis: Eliquis CODE STATUS: Full code Discharge plan/next site of care: Pending workup hospital course, likely back to home Objective - Vital Signs Vital signs: Vital Signs Temp 97.9 F 03/31/22 14:56 Pulse 83 03/31/22 14:56 Resp 18 03/31/22 14:56 BP 112/73 03/31/22 14:56 Pulse Ox 95 03/31/22 14:56 FiO2 Intake & Output 03/30/22 03/31/22 03/31/22 18:59 06:59 18:59 Intake Total 120 Balance 120 Weight 99.79 kg Intake: Oral 120 Other: # Voids 1 1 General: non toxic, no acute distress, alert oriented to time place and person Head: atraumatic, normocephalic, symmetric Eyes: no lid lesion], anicteric sclera Mouth: no lip lesion, mucus membranes moist Cardiovascular: S1S2 reg rate and rhythm, no murmur, no gallop Lungs: Bilateral equal air entry, no wheezing no rhonchi no crackles. Abdominal: soft, nontender to palpation, no guarding, no appreciable organomegaly Ext: no gross muscle atrophy, no edema extremities warm to suppose a positive Neuro: Alert oriented to time place and person, exam grossly nonfocal Psych: Mood and affect appropriate, patient not so certain Skin exam: No rashes no jaundice. - Labs CBC & Chem 7: 03/31/22 11:33 03/31/22 11:33 Labs: Abnormal Lab Results - Last 24 Hours (Table) 03/30/22 03/30/22 03/31/22 Range/Units 17:32 21:35 07:03 RBC (3.80-5.40) m/uL Hgb (11.4-16.0) gm/dL Neutrophils # (1.3-7.7) k/uL Lymphocytes # (1.0-4.8) k/uL Sodium (137-145) mmol/L Glucose (74-99) mg/dL POC Glucose (mg/dL) 210 H 470 H 524 H (75-99) mg/dL Alkaline Phosphatase (38-126) U/L Total Protein (6.3-8.2) g/dL 03/31/22 03/31/22 03/31/22 Range/Units 11:33 11:33 11:45 RBC 3.56 L (3.80-5.40) m/uL Hgb 11.3 L (11.4-16.0) gm/dL Neutrophils # 8.9 H (1.3-7.7) k/uL Lymphocytes # 0.3 L (1.0-4.8) k/uL Sodium 132 L (137-145) mmol/L Glucose 438 H (74-99) mg/dL POC Glucose (mg/dL) 488 H (75-99) mg/dL Alkaline Phosphatase 175 H (38-126) U/L Total Protein 6.0 L (6.3-8.2) g/dL
[2022-03-31 17:04] LABS: Glucose,Whole Blood 427 mg/dL (75-99)
[2022-03-31] MEDS ORDERED: INSULIN PUMP BASAL RATES 1 EACH MISC MISCELLANE PRN (17:34)
[2022-03-31] MEDS ORDERED: INSULIN ASPART (NovoLOG) 100 UNIT/ML VIAL SQ PRN (17:34)
[2022-03-31] MEDS ORDERED: INSPUCOR MISCELLANE PRN (17:34)
[2022-03-31] MEDS: ATORVASTATIN 80 MG TAB PO SCH (19:30)
[2022-03-31] MEDS: INSULIN DETEMIR (LEVEMIR) 100 UNIT/ML SYR SQ SCH (19:30)
[2022-03-31] MEDS: traZODone HCL 50 MG TAB PO SCH (19:32)
[2022-03-31 20:08] LABS: Glucose,Whole Blood 377 mg/dL (75-99)
[2022-03-31] MEDS: INSULIN PUMP MEAL BOLUS 1 UNIT MISC MISCELLANE SCH (20:21)
[2022-04-01] MEDS: diphenhydrAMINE 50 MG/ML 1 ML VIAL IVP PRN ×3 (01:33→13:20)
[2022-04-01 02:09] LABS: Glucose,Whole Blood 205 mg/dL (75-99)
[2022-04-01] MEDS: MORPHINE SULFATE 4 MG/ML SYRINGE IV PRN ×3 (03:28→11:57)
[2022-04-01] MEDS: LEVOTHYROXINE 50 MCG TAB PO SCH (05:04)
[2022-04-01] MEDS ORDERED: CAFFEINE CITRATE 60 MG/3 ML VIAL IV PRN (06:00)
[2022-04-01] MEDS ORDERED: REGADENOSON 0.4 MG/5 ML SYRINGE IV PRN (06:00)
[2022-04-01] MEDS ORDERED: AMINOPHYLLINE 500 MG/20 ML VIAL IV PRN (06:00)
[2022-04-01] MEDS: LACTULOSE 20 GM/30 ML CUP PO SCH (07:14)
[2022-04-01 07:17] LABS: Glucose,Whole Blood 80 mg/dL (75-99)
[2022-04-01] MEDS: INSULIN ASPART (NovoLOG) 100 UNIT/ML VIAL SQ SCH ×4 (07:26→12:09)
[2022-04-01] MEDS: INSULIN PUMP MEAL BOLUS 1 UNIT MISC MISCELLANE SCH ×2 (07:36→12:04)
[2022-04-01] MEDS: ASPIRIN 81 MG PO SCH (07:37)
[2022-04-01] MEDS: APIXABAN 5 MG TAB PO SCH (07:37)
[2022-04-01] MEDS: BALSALAZIDE DISODIUM 750 MG CAPSULE PO SCH (07:38)
[2022-04-01] MEDS: ISOSORBIDE MONONITRATE ER 30 MG TAB.ER.24H PO SCH (07:39)
[2022-04-01] MEDS: hydroCHLOROthiazide 25 MG TAB PO SCH (07:39)
[2022-04-01] MEDS: DILTIAZEM CD 120 MG CAP.ER.24H PO SCH (07:39)
[2022-04-01] MEDS: DOCUSATE ORAL SOLN 100 MG/10 ML CUP PO SCH (07:39)
[2022-04-01] MEDS: DULoxetine HCL 30 MG CAPSULE.DR PO SCH (07:39)
[2022-04-01] MEDS: levETIRAcetam 500 MG TAB PO SCH (07:40)
[2022-04-01] MEDS: lisinopriL 20 MG TAB PO SCH (07:40)
[2022-04-01] MEDS: LURASIDONE 20 MG TAB PO SCH (07:40)
[2022-04-01] MEDS: LORATADINE 10 MG TAB PO SCH (07:40)
[2022-04-01] MEDS: SYMBICORT 160-4.5 MCG INHALER INHALATION SCH (07:51)
[2022-04-01] MEDS ORDERED: DOBUTamine DRIP for NUC MED 500 MG in DEXTROSE/WATER 1 250ML.BAG IV PRN (08:00)
[2022-04-01] MEDS: carvediloL 12.5 MG TAB PO SCH (08:08)
[2022-04-01 08:59] VITALS: BP 121/79; PULSE 68; RESP 16; TEMP 97.9
[2022-04-01 10:35] LABS: Glucose,Whole Blood 103 mg/dL (75-99)
--- NOTE | 2022-04-01 10:54 | P.PN ---
Subjective This is a 52-year-old female with a past medical history of paroxysmal atrial fibrillation on Eliquis, type 1 diabetes, hypertension, congestive heart failure, lupus, substance abuse, pulmonary embolism, depression. She does not follow with a human resources director. We are consulted for chest pain. Patient presents to the emergency department with complaints of chest pain, left arm intermittent numbness, pressure under her left breast. She also had complaints of right sided flank pain, abdominal pain and dysuria. Patient seen and examined at bedside, no acute distress. Acute coronary syndrome has ruled out with negative cardiac enzymes and no acute ischemia noted on EKG. Vital signs are stable, no acute events overnight. Plan for dobutamine stress echo today. GENERAL: Well-appearing, well-nourished and in no acute distress. NECK: Supple without JVD or thyromegaly. LUNGS: Breath sounds clear to auscultation bilaterally. Respiration equal and unlabored. No wheezes, rales or rhonchi. HEART: Regular rate and rhythm without murmurs, rubs or gallops. S1 and S2 heard. EXTREMITIES: Normal range of motion, no edema. No clubbing or cyanosis. Peripheral pulses intact. ASSESSMENT Chest pain, atypical, acute coronary syndrome has ruled out Right sided flank pain Paroxysmal atrial fibrillation on Eliquis Type 1 diabetes Hypertension Lupus Chronic nicotine dependence History of alcohol abuse History of pulmonary embolism History of Depression PLAN An acute coronary event has been ruled out with no EKG evidence of ischemia and negative cardiac enzymes. Dobutamine stress echo test was ordered today to assess for stress induced cardiac ischemia. Patient states she does have allergy to dobutamine with itching reaction. She was given IV benadryl prior to the stress test. At this time, patient is refusing her stress test to be completed. We recommend this be done as an outpatient if patient does not want to pursue as an inpatient. No further changes at this time from a cardiology perspective. Nurse Practitioner note has been reviewed, I agree with a documented findings and plan of care. Patient was seen and examined. Objective - Vital Signs Vital signs: Vital Signs Temp 97.9 F 04/01/22 07:00 Pulse 68 04/01/22 07:00 Resp 16 04/01/22 07:00 BP 121/79 04/01/22 07:00 Pulse Ox 97 04/01/22 07:00 FiO2 Intake & Output 03/31/22 04/01/22 04/01/22 18:59 06:59 18:59 Intake Total 120 Balance 120 Intake: Oral 120 Other: Voiding Method Toilet Toilet # Voids 1 2 - Labs CBC & Chem 7: 03/31/22 11:33 03/31/22 11:33 Labs: Abnormal Lab Results - Last 24 Hours (Table) 03/31/22 03/31/22 03/31/22 Range/Units 11:33 11:33 11:45 RBC 3.56 L (3.80-5.40) m/uL Hgb 11.3 L (11.4-16.0) gm/dL Neutrophils # 8.9 H (1.3-7.7) k/uL Lymphocytes # 0.3 L (1.0-4.8) k/uL Sodium 132 L (137-145) mmol/L Glucose 438 H (74-99) mg/dL POC Glucose (mg/dL) 488 H (75-99) mg/dL Alkaline Phosphatase 175 H (38-126) U/L Total Protein 6.0 L (6.3-8.2) g/dL 03/31/22 03/31/22 04/01/22 Range/Units 17:02 20:06 02:05 RBC (3.80-5.40) m/uL Hgb (11.4-16.0) gm/dL Neutrophils # (1.3-7.7) k/uL Lymphocytes # (1.0-4.8) k/uL Sodium (137-145) mmol/L Glucose (74-99) mg/dL POC Glucose (mg/dL) 427 H 377 H 205 H (75-99) mg/dL Alkaline Phosphatase (38-126) U/L Total Protein (6.3-8.2) g/dL 04/01/22 Range/Units 10:34 RBC (3.80-5.40) m/uL Hgb (11.4-16.0) gm/dL Neutrophils # (1.3-7.7) k/uL Lymphocytes # (1.0-4.8) k/uL Sodium (137-145) mmol/L Glucose (74-99) mg/dL POC Glucose (mg/dL) 103 H (75-99) mg/dL Alkaline Phosphatase (38-126) U/L Total Protein (6.3-8.2) g/dL
[2022-04-01 12:01] LABS: Glucose,Whole Blood 142 mg/dL (75-99)
--- NOTE | 2022-04-01 13:00 | P.PN ---
Subjective Patient was examined at bedside not complaining of any worsening symptomatology. She continues to complain of discomfort in her right flank area/abdominal discomfort. Urinalysis was reviewed negative for any UTI. Patient also apparently refused a stress test as per RN and cardiology's notes. We will try a dose of stool softeners to assess if this helps with abdominal discomfort that she is having. Objective - Vital Signs Vital signs: Vital Signs Temp 97.9 F 04/01/22 07:00 Pulse 68 04/01/22 07:00 Resp 16 04/01/22 07:00 BP 121/79 04/01/22 07:00 Pulse Ox 97 04/01/22 07:00 FiO2 Intake & Output 03/31/22 04/01/22 04/01/22 18:59 06:59 18:59 Intake Total 120 Balance 120 Intake: Oral 120 Other: Voiding Method Toilet Toilet # Voids 1 2 - Exam General: non toxic, no acute distress, alert oriented to time place and person Head: atraumatic, normocephalic, symmetric Eyes: no lid lesion], anicteric sclera Mouth: no lip lesion, mucus membranes moist Cardiovascular: S1S2 reg rate and rhythm, no murmur, no gallop Lungs: Bilateral equal air entry, no wheezing no rhonchi no crackles. Abdominal: soft, slightly tender to palpation on the right flank/abdominal discomfort no guarding, no appreciable organomegaly Ext: no gross muscle atrophy, no edema extremities warm to suppose a positive Neuro: Alert oriented to time place and person, exam grossly nonfocal Psych: Mood and affect appropriate, patient not so certain Skin exam: No rashes no jaundice. - Labs CBC & Chem 7: 03/31/22 11:33 03/31/22 11:33 Labs: Abnormal Lab Results - Last 24 Hours (Table) 03/31/22 03/31/22 04/01/22 Range/Units 17:02 20:06 02:05 POC Glucose (mg/dL) 427 H 377 H 205 H (75-99) mg/dL 04/01/22 04/01/22 Range/Units 10:34 12:00 POC Glucose (mg/dL) 103 H 142 H (75-99) mg/dL Assessment and Plan Assessment: Chest pain Atypical in nature, no criteria for acute [place] secondary to negative troponins and no EKG changes. Patient was scheduled for stress test dobutamine refused Respiratory cardiology will recommend outpatient follow-up History of alcohol abuse Patient was at [place] for alcohol detox, patient has history of drinking 4-5 beers a day Watch for withdrawal symptoms Atrial fibrillation Continue carvedilol and diltiazem as ordered. Continue Eliquis Hypertension Continue lisinopril as ordered. History of pulmonary embolism Continue apixaban, aspirin as ordered. Tobacco abuse Patient smokes about 5 cigarettes a day Counseling regarding smoking cessation Abdominal discomfort CT abdomen and pelvis reviewed. Was likely related to constipation we'll start the patient on a bowel regimen. Case discussed with RN. I've also advised the patient regarding the incidental him of the right adrenal lesion that needs to be followed up with primary care doctor. Will require CT or MRI dedicated adrenal mass protocol. DVT prophylaxis: Eliquis CODE STATUS: Full code Discharge plan/next site of care: Pending resolution of abdominal discomfort/constipation. Patient is refusing medical treatment. Including stress test.
--- NOTE | 2022-04-01 13:38 | P.DS ---
Providers Date of admission: 03/30/22 15:59 Attending physician: Lux Dinero MD Consults: 03/30/22 15:59 Consult Physician Routine Consulting Provider: [facility] Consult Reason/Comments: chest pain Do you want consulting provider notified?: Yes, Notify in am Primary care physician: Stated None Hospital Course: This 52-year-old black female who reported to the hospital with chest pain. She is presently pain as substernal, moderate in severity, sharp. Pain has been improved and decreased to 3/10. She denies shortness of breath. She also reports abdominal pain described as flank and abdomen radiating to the groin area mostly on the right side. She states that she has history of kidney stones and this appears to be similar. She also reports an episode of nausea and vomiting. She reports a temperature 100 at home. She denies dizziness or loss of consciousness. At the time of examination patient appears to be comfortable and does not appear to be in distress. Patient was examined at bedside today she was scheduled for a dobutamine stress test however patient refused to undergo that. Chest pain was not present during my examination. As per cardiology the patient is okay to be discharged since she did refuse the stress test she needs to follow-up outpatient to get this completed. Patient is also been refusing her medical other medications as per RN. She says that her pain is better on reevaluation and that she is okay and wants to be discharge. Patient's vital signs are stable I have recommended her to continue using a bowel regimen. CBC reviewed no leukocytosis, hemoglobin stable, urinalysis negative for any urinary tract infection. Discussion of the abdomen and pelvis was completed which showed no evidence of appendicitis or obstructive uropathy. There was large to averted which has become indicated to the patient. Patient also needs to follow-up outpatient regarding her adrenal adenoma with CT/MRI adrenal mass protocol that has been communicated to the patient. At this time the patient wants to be discharge she has been cleared by inside phone sales perspective denies any new symptomatology worsening symptomatology. Currently resolved. Patient is refusing multiple medical treatments at this time. Patient Condition at Discharge: Stable Plan - Discharge Summary Discharge Rx Participant: No New Discharge Prescriptions: Continue lisinopriL [Prinivil] 20 mg PO DAILY levETIRAcetam [Keppra] 1,000 mg PO BID Lurasidone [Latuda] 20 mg PO BID Levothyroxine Sodium [Synthroid] 50 mcg PO DAILY Insulin Glargine,Hum.rec.anlog [Lantus Solostar Pen] 36 units SQ HS hydroCHLOROthiazide 25 mg PO DAILY Diltiazem HCl [Cardizem CD] 120 mg PO DAILY DULoxetine HCL [Cymbalta] 30 mg PO DAILY Atorvastatin [Lipitor] 80 mg PO HS Aspirin 81 mg PO DAILY Mesalamine [Lialda] 2.4 gm PO DAILY Loratadine 10 mg PO DAILY Budesonide-Formot 160-4.5 Mcg [Symbicort 160-4.5 Mcg Inhaler] 2 puff INHALATION RT-BID Isosorbide Mononitrate ER [Imdur] 30 mg PO DAILY INSULIN LISPRO (HumaLOG) [humaLOG] 12 units SQ TID-W/MEALS Apixaban [Eliquis] 5 mg PO BID Colace 50mg 50 mg PO DAILY Carvedilol [Coreg] 25 mg PO BID traZODone HCL 150 mg PO HS Discharge Medication List Apixaban [Eliquis] 5 mg PO BID 03/30/22 [History] Aspirin 81 mg PO DAILY 03/30/22 [History] Atorvastatin [Lipitor] 80 mg PO HS 03/30/22 [History] Budesonide-Formot 160-4.5 Mcg [Symbicort 160-4.5 Mcg Inhaler] 2 puff INHALATION RT-BID 03/30/22 [History] Carvedilol [Coreg] 25 mg PO BID 03/30/22 [History] Colace 50mg 50 mg PO DAILY 03/30/22 [History] DULoxetine HCL [Cymbalta] 30 mg PO DAILY 03/30/22 [History] Diltiazem HCl [Cardizem CD] 120 mg PO DAILY 03/30/22 [History] INSULIN LISPRO (HumaLOG) [humaLOG] 12 units SQ TID-W/MEALS 03/30/22 [History] Insulin Glargine,Hum.rec.anlog [Lantus Solostar Pen] 36 units SQ HS 03/30/22 [H istory] Isosorbide Mononitrate ER [Imdur] 30 mg PO DAILY 03/30/22 [History] Levothyroxine Sodium [Synthroid] 50 mcg PO DAILY 03/30/22 [History] Loratadine 10 mg PO DAILY 03/30/22 [History] Lurasidone [Latuda] 20 mg PO BID 03/30/22 [History] Mesalamine [Lialda] 2.4 gm PO DAILY 03/30/22 [History] hydroCHLOROthiazide 25 mg PO DAILY 03/30/22 [History] levETIRAcetam [Keppra] 1,000 mg PO BID 03/30/22 [History] lisinopriL [Prinivil] 20 mg PO DAILY 03/30/22 [History] traZODone HCL 150 mg PO HS 03/30/22 [History] Follow up Appointment(s)/Referral(s): Brayan Blackmon MD [STAFF PHYSICIAN] - 2 Weeks None,Stated [Primary Care Provider] - 1-2 days Discharge Disposition: TRANSFER TO SNF/ECF
== END 2022-04-01 13:59 ==
LOC: EC 11:02 → 6NMEDSUR 15:59
PROVIDERS: ADMIT Internal Medicine; ATTEND Internal Medicine
DX: R07.2 Precordial pain (principal); R10.31 Right lower quadrant pain; E10.9 Type 1 diabetes mellitus without complications; I48.0 Paroxysmal atrial fibrillation; I11.0 Hypertensive heart disease with heart failure; I50.9 Heart failure, unspecified; I25.2 Old myocardial infarction; F17.210 Nicotine dependence, cigarettes, uncomplicated; E78.5 Hyperlipidemia, unspecified; E03.9 Hypothyroidism, unspecified; D68.51 Activated protein C resistance; E27.9 Disorder of adrenal gland, unspecified; K59.00 Constipation, unspecified; F32.A Depression, unspecified; M32.9 Systemic lupus erythematosus, unspecified; D64.9 Anemia, unspecified; Z79.890 Hormone replacement therapy; Z79.51 Long term (current) use of inhaled steroids; Z79.4 Long term (current) use of insulin; Z79.01 Long term (current) use of anticoagulants; Z79.82 Long term (current) use of aspirin; Z79.899 Other long term (current) drug therapy; Z88.5 Allergy status to narcotic agent; Z91.013 Allergy to seafood; Z88.6 Allergy status to analgesic agent; Z88.3 Allergy status to other anti-infective agents; Z91.018 Allergy to other foods; Z91.048 Other nonmedicinal substance allergy status; Z71.6 Tobacco abuse counseling; Z86.711 Personal history of pulmonary embolism; Z87.442 Personal history of urinary calculi; Z90.710 Acquired absence of both cervix and uterus; Z90.49 Acquired absence of other specified parts of digestive tract; Z86.59 Personal history of other mental and behavioral disorders
CPT/HCPCS: 99285; 96376 ×4; 96361; 96374; 96375; 36415; 94640 ×4; 93005; 85379; 80053 ×2; 82150; 83690; 83735; 84484 ×2; 85025 ×2; 85610; 85730; 81003; 81025; 73502; 73060; 73562; 71046; 76770; 70450; 74177; G0378 ×3; J2270 ×4; J1200 ×3; J2930; J2405; Q9967

== ENCOUNTER 2022-04-04 17:10 | Emergency (ER) | payer OTHER ==
[2022-04-04] MEDS ORDERED: SODIUM CHLORIDE 0.9% 500 ML 500 ML IV STA (18:27)
[2022-04-04] MEDS ORDERED: ASPIRIN 81 MG PO STA (18:29)
[2022-04-04 18:31] VITALS: TEMP 98.1
--- NOTE | 2022-04-04 18:32 | ED ---
Abdominal Pain HPI - General Stated Complaint: Fall,Abdominal Pain,Blood Thinners Time Seen by Provider: 04/04/22 18:27 Source: RN notes reviewed - History of Present Illness Initial Comments: Department complaining of 2 days of right flank pain and now has had chest pressure for the past one and half hours. Chest pressure is intermittent. Patient does have a history of factor V Leiden. Patient had no relief with nitroglycerin. Patient has had intermittent hematuria and some burning urination. Diagnosed with a kidney stone last week. Also states that she had a syncopal episode earlier this afternoon when she was taking a shower. She did strike her head and is on Xarelto. Was unconscious for 5 or 10 minutes according to the patient. Mild headache, no fever or chills, no changes in vision or hearing, no sore throat or difficulty with speech, no neck pain, no chest pain or shortness of breath, no abdominal pain, no nausea or vomiting, no changes in urination or bowel movements, no numbness or tingling, no extremity pain, no skin rashes or lesions. MD Complaint: flank pain - Related Data Home Medications Medication Instructions Recorded Confirmed Apixaban [Eliquis] 5 mg PO BID 03/30/22 03/30/22 Aspirin 81 mg PO DAILY 03/30/22 03/30/22 Atorvastatin [Lipitor] 80 mg PO HS 03/30/22 03/30/22 Budesonide-Formot 160-4.5 Mcg 2 puff INHALATION RT-BID 03/30/22 03/30/22 [Symbicort 160-4.5 Mcg Inhaler] Colace 50mg 50 mg PO DAILY 03/30/22 03/30/22 DULoxetine HCL [Cymbalta] 30 mg PO DAILY 03/30/22 03/30/22 INSULIN LISPRO (HumaLOG) [humaLOG] 12 units SQ TID-W/MEALS 03/30/22 03/30/22 Insulin Glargine,Hum.rec.anlog 36 units SQ HS 03/30/22 03/30/22 [Lantus Solostar Pen] Isosorbide Mononitrate ER [Imdur] 30 mg PO DAILY 03/30/22 03/30/22 Levothyroxine Sodium [Synthroid] 50 mcg PO DAILY 03/30/22 03/30/22 Loratadine 10 mg PO DAILY 03/30/22 03/30/22 Lurasidone [Latuda] 20 mg PO BID 03/30/22 03/30/22 Mesalamine [Lialda] 2.4 gm PO DAILY 03/30/22 03/30/22 carvediloL [Coreg] 25 mg PO BID 03/30/22 03/30/22 dilTIAZem HCL [Cardizem CD] 120 mg PO DAILY 03/30/22 03/30/22 hydroCHLOROthiazide 25 mg PO DAILY 03/30/22 03/30/22 levETIRAcetam [Keppra] 1,000 mg PO BID 03/30/22 03/30/22 lisinopriL [Prinivil] 20 mg PO DAILY 03/30/22 03/30/22 traZODone HCL 150 mg PO HS 03/30/22 03/30/22 Allergies Allergy/AdvReac Type Severity Reaction Status Date / Time acetaminophen [From Tylenol] Allergy Anaphylaxis Verified 04/04/22 18:31 & Itching & Hives dicyclomine [From Bentyl] Allergy Anaphylaxis Verified 04/04/22 18:31 Fish Containing Products Allergy Anaphylaxis Verified 04/04/22 18:31 [Fish] & Itching & Hives ibuprofen [From Motrin] Allergy Anaphylaxis Verified 04/04/22 18:31 & Itching & Hives Iodinated Contrast Media Allergy Itching Verified 04/04/22 18:31 ketorolac [From Toradol] Allergy Anaphylaxis Verified 04/04/22 18:31 tramadol Allergy Anaphylaxis Verified 04/04/22 18:31 & Itching & Hives Review of Systems ROS Statement: Those systems with pertinent positive or pertinent negative responses have been documented in the HPI. ROS Other: All systems not noted in ROS Statement are negative. Past Medical History Past Medical History: Atrial Fibrillation, Blood Disorder, Heart Failure, Diabetes Mellitus, Hypertension, Myocardial Infarction (VT) Additional Past Medical History / Comment(s): factor 5, lupus , anemia Last Myocardial Infarction Date:: unk History of Any Multi-Drug Resistant Organisms: None Reported Past Surgical History: Cholecystectomy, Hysterectomy Past Psychological History: No Psychological Hx Reported Smoking Status: Current every day smoker Past Alcohol Use History: Abuse, Daily Past Drug Use History: None Reported General Exam - General Exam Comments Initial Comments: Patient does not appear to be alert toxic. Moderate distress secondary to right flank pain. Patient holding her right CVA area. Vital signs reviewed cranial nerves II through XII intact. General appearance: alert, in no apparent distress Head exam: Present: atraumatic, normocephalic, normal inspection Eye exam: Present: normal appearance, PERRL, EOMI. Absent: scleral icterus, conjunctival injection, periorbital swelling ENT exam: Present: normal exam, mucous membranes moist Neck exam: Present: normal inspection, full ROM. Absent: tenderness, meningismus, lymphadenopathy Respiratory exam: Present: normal lung sounds bilaterally. Absent: respiratory distress, wheezes, rales, rhonchi, stridor Cardiovascular Exam: Present: regular rate, normal rhythm, normal heart sounds. Absent: systolic murmur, diastolic murmur, rubs, gallop, clicks GI/Abdominal exam: Present: soft, tenderness (Mild right-sided abdominal tenderness with voluntary guarding), normal bowel sounds. Absent: distended, guarding, rebound, rigid Extremities exam: Present: normal inspection, full ROM, normal capillary refill. Absent: tenderness, pedal edema, joint swelling, calf tenderness Back exam: Present: normal inspection, full ROM, CVA tenderness (R) Neurological exam: Present: alert, oriented X3, CN II-XII intact Psychiatric exam: Present: normal affect, normal mood Skin exam: Present: warm, dry, intact, normal color. Absent: rash Course Vital Signs 04/04/22 04/04/22 18:26 22:47 Temperature 98.1 F Pulse Rate 88 81 Respiratory 18 16 Rate Blood Pressure 142/87 136/76 O2 Sat by Pulse 98 97 Oximetry - Reevaluation(s) Reevaluation #1: 04/04/22 22:38 Medical record is reviewed Symptoms are essentially unchanged Patient is informed of results and questions answered Patient in no distress Medical Decision Making - Medical Decision Making at this patient is at [facility]. CT last week did not show any evidence of ureteral stone or obstructive uropathy. Of note, this patient was recently admitted for the same symptomology. Patient's computed tomography scan did show an adrenal adenoma, no other acute findings at that time. No acute findings today. This was also seen by cardiology and deemed to have atypical chest pain Patient was told to return to the ER for any signs or symptoms worsen. Told to return immediately if any other problems arise. All questions answered. Treatment plan discussed. Patient in agreement Every effort has been made to ensure accuracy of this dictation. However, due to the limitations of electronic medical records and dictation devices, errors in charting still occur. Given the patient's findings, recent evaluation by cardiology, length of symptomology and negative troponin and this is unlikely to be cardiac in etiolog y. The case was discussed in detail with ED attending physician. Presentation, findings, treatment plan discussed in detail. Supervising physician is Dr. Real - Lab Data Result diagrams: 04/04/22 18:27 04/04/22 21:36 Lab Results 04/04/22 04/04/22 04/04/22 Range/Units 18:27 18:27 21:36 WBC 7.2 (3.8-10.6) k/uL RBC 3.84 (3.80-5.40) m/uL Hgb 11.8 (11.4-16.0) gm/dL Hct 36.5 (34.0-46.0) % MCV 95.0 (80.0-100.0) fL MCH 30.7 (25.0-35.0) pg MCHC 32.3 (31.0-37.0) g/dL RDW 12.5 (11.5-15.5) % Plt Count 258 (150-450) k/uL MPV 7.1 Neutrophils % 71 % Lymphocytes % 18 % Monocytes % 6 % Eosinophils % 2 % Basophils % 1 % Neutrophils # 5.1 (1.3-7.7) k/uL Lymphocytes # 1.3 (1.0-4.8) k/uL Monocytes # 0.4 (0-1.0) k/uL Eosinophils # 0.2 (0-0.7) k/uL Basophils # 0.1 (0-0.2) k/uL APTT 23.2 (22.0-30.0) sec Sodium 133 L (137-145) mmol/L Potassium 3.5 (3.5-5.1) mmol/L Chloride 99 (98-107) mmol/L Carbon Dioxide 29 (22-30) mmol/L Anion Gap 5 mmol/L BUN 13 (7-17) mg/dL Creatinine 0.79 (0.52-1.04) mg/dL Est GFR (CKD-EPI)AfAm >90 (>60 ml/min/1.73 sqM) Est GFR (CKD-EPI)NonAf 88 (>60 ml/min/1.73 sqM) Glucose 323 H (74-99) mg/dL POC Glucose (mg/dL) (70-110) mg/dL POC Glu Tutor ID Plasma Lactic Acid Isaias (0.7-2.0) mmol/L Calcium 8.6 (8.4-10.2) mg/dL Total Bilirubin 0.3 (0.2-1.3) mg/dL AST 19 (14-36) U/L ALT 21 (4-34) U/L Alkaline Phosphatase 144 H (38-126) U/L Troponin I (0.000-0.034) ng/mL Total Protein 5.8 L (6.3-8.2) g/dL Albumin 3.4 L (3.5-5.0) g/dL Amylase 90 (30-110) U/L Lipase 109 (23-300) U/L Urine Color Urine Appearance (Clear) Urine pH (5.0-8.0) Ur Specific [place] (1.001-1.035) Urine Protein (Negative) Urine Glucose (UA) (Negative) Urine Ketones (Negative) Urine Blood (Negative) Urine Nitrite (Negative) Urine Bilirubin (Negative) Urine Urobilinogen (<2.0) mg/dL Ur Leukocyte Esterase (Negative) 04/04/22 04/04/22 04/04/22 Range/Units 21:45 22:14 22:14 WBC (3.8-10.6) k/uL RBC (3.80-5.40) m/uL Hgb (11.4-16.0) gm/dL Hct (34.0-46.0) % MCV (80.0-100.0) fL MCH (25.0-35.0) pg MCHC (31.0-37.0) g/dL RDW (11.5-15.5) % Plt Count (150-450) k/uL MPV Neutrophils % % Lymphocytes % % Monocytes % % Eosinophils % % Basophils % % Neutrophils # (1.3-7.7) k/uL Lymphocytes # (1.0-4.8) k/uL Monocytes # (0-1.0) k/uL Eosinophils # (0-0.7) k/uL Basophils # (0-0.2) k/uL APTT (22.0-30.0) sec Sodium (137-145) mmol/L Potassium (3.5-5.1) mmol/L Chloride (98-107) mmol/L Carbon Dioxide (22-30) mmol/L Anion Gap mmol/L BUN (7-17) mg/dL Creatinine (0.52-1.04) mg/dL Est GFR (CKD-EPI)AfAm (>60 ml/min/1.73 sqM) Est GFR (CKD-EPI)NonAf (>60 ml/min/1.73 sqM) Glucose (74-99) mg/dL POC Glucose (mg/dL) (70-110) mg/dL POC Glu Tutor ID Plasma Lactic Acid Isaias 2.2 H* (0.7-2.0) mmol/L Calcium (8.4-10.2) mg/dL Total Bilirubin (0.2-1.3) mg/dL AST (14-36) U/L ALT (4-34) U/L Alkaline Phosphatase (38-126) U/L Troponin I <0.012 (0.000-0.034) ng/mL Total Protein (6.3-8.2) g/dL Albumin (3.5-5.0) g/dL Amylase (30-110) U/L Lipase (23-300) U/L Urine Color Light Yellow Urine Appearance Clear (Clear) Urine pH 7.0 (5.0-8.0) Ur Specific [place] 1.013 (1.001-1.035) Urine Protein Negative (Negative) Urine Glucose (UA) 3+ H (Negative) Urine Ketones Negative (Negative) Urine Blood Negative (Negative) Urine Nitrite Negative (Negative) Urine Bilirubin Negative (Negative) Urine Urobilinogen <2.0 (<2.0) mg/dL Ur Leukocyte Esterase Negative (Negative) 04/04/22 Range/Units 23:20 WBC (3.8-10.6) k/uL RBC (3.80-5.40) m/uL Hgb (11.4-16.0) gm/dL Hct (34.0-46.0) % MCV (80.0-100.0) fL MCH (25.0-35.0) pg MCHC (31.0-37.0) g/dL RDW (11.5-15.5) % Plt Count (150-450) k/uL MPV Neutrophils % % Lymphocytes % % Monocytes % % Eosinophils % % Basophils % % Neutrophils # (1.3-7.7) k/uL Lymphocytes # (1.0-4.8) k/uL Monocytes # (0-1.0) k/uL Eosinophils # (0-0.7) k/uL Basophils # (0-0.2) k/uL APTT (22.0-30.0) sec Sodium (137-145) mmol/L Potassium (3.5-5.1) mmol/L Chloride (98-107) mmol/L Carbon Dioxide (22-30) mmol/L Anion Gap mmol/L BUN (7-17) mg/dL Creatinine (0.52-1.04) mg/dL Est GFR (CKD-EPI)AfAm (>60 ml/min/1.73 sqM) Est GFR (CKD-EPI)NonAf (>60 ml/min/1.73 sqM) Glucose (74-99) mg/dL POC Glucose (mg/dL) 286 H (70-110) mg/dL POC Glu Tutor ID Wm Burns Plasma Lactic Acid Isaias (0.7-2.0) mmol/L Calcium (8.4-10.2) mg/dL Total Bilirubin (0.2-1.3) mg/dL AST (14-36) U/L ALT (4-34) U/L Alkaline Phosphatase (38-126) U/L Troponin I (0.000-0.034) ng/mL Total Protein (6.3-8.2) g/dL Albumin (3.5-5.0) g/dL Amylase (30-110) U/L Lipase (23-300) U/L Urine Color Urine Appearance (Clear) Urine pH (5.0-8.0) Ur Specific [place] (1.001-1.035) Urine Protein (Negative) Urine Glucose (UA) (Negative) Urine Ketones (Negative) Urine Blood (Negative) Urine Nitrite (Negative) Urine Bilirubin (Negative) Urine Urobilinogen (<2.0) mg/dL Ur Leukocyte Esterase (Negative) - EKG Data -: EKG Interpreted by Me (As well as ED attending physician) EKG shows normal: sinus rhythm EKG Comments: Sinus rhythm with a rate of 80. Voltage criteria for LVH. R-wave progression. Left axis deviation. No acute ST or T-wave changes. When compared to previous EKG there are: no significant change - Radiology Data Radiology results: report reviewed, image reviewed Disposition Clinical Impression: Flank pain, acute, Atypical chest pain, Adenoma of right adrenal gland, History of alcoholism Disposition: HOME SELF-CARE Condition: Stable Instructions (If sedation given, give patient instructions): Chest Pain (ED) Additional Instructions: Follow-up with your regular physician as directed. Return to the ER immediately if any symptoms worsen, new symptoms arise, or any other problems develop. Take your current medication regimen as directed by [place]. Is patient prescribed a controlled substance at d/c from ED?: No Referrals: None,Stated [Primary Care Provider] - 1-2 days Time of Disposition: 21:46
--- NOTE | 2022-04-04 19:27 | CT ---
EXAM: CT brain wo con CLINICAL HISTORY: Headache status post fall. COMPARISON: None TECHNIQUE: Contiguous axial noncontrast images of the brain were obtained. Coronal and sagittal refor mats were generated and reviewed. Automated dose control was used for this exam. FINDINGS: There is no evidence for intracranial hemorrhage, mass effect or midline shift. The white matter is g rossly preserved. Ventricular size and configuration is within normal limits for degree of parenchymal volume. The paranasal sinuses are clear. The mastoid air cells are clear. No evidence for calvarial fracture. IMPRESSION: No acute intracranial abnormality.
--- NOTE | 2022-04-04 19:35 | CT ---
EXAMINATION TYPE: CT abdomen pelvis wo con DATE OF EXAM: 04/04/2022 COMPARISON: 03/30/2022 HISTORY: flank pian CT DLP: 1094.4 mGycm Automated exposure control for dose reduction was used. TECHNIQUE: Helical acquisition of images was performed from the lung bases through the pelvis. FINDINGS: LUNG BASES: No significant abnormality is appreciated. LIVER/GB: No significant abnormality is appreciated. Cholecystectomy. PANCREAS: No significant abnormality is seen. SPLEEN: No significant abnormality is seen. ADRENALS: No acute abnormality is seen. Unchanged 11 mm right adrenal nodule. KIDNEYS: No significant abnormality is seen. FREE AIR: No free air is visualized RETROPERITONEAL ADENOPATHY: None visualized REPRODUCTIVE ORGANS: No significant abnormality is seen URINARY BLADDER: No significant abnormality is seen. PELVIC ADENOPATHY: None visualized. OSSEOUS STRUCTURES: No significant abnormality is seen. BOWEL: No significant abnormality is seen. OTHER: None IMPRESSION: NO ACUTE ABNORMALITY. UNCHANGED RIGHT ADRENAL NODULE.
--- NOTE | 2022-04-04 20:13 | XR ---
EXAM: Abdomen radiograph. HISTORY: Pain. TECHNIQUE: Supine and upright AP views. COMPARISON: None available FINDINGS: There are nondilated bowel loops with a nonobstructive pattern. There is moderate amount of stool thr oughout the colon. There are no pathologic calcifications. No acute osseous abnormality seen. Cholecy stectomy clips seen. No pneumoperitoneum. IMPRESSION: Stool burden without acute process.
[2022-04-04 21:51] LABS: Basophils # (A) 0.1 k/uL (0-0.2); Basophils % (A) 1 %; Eosinophils # (A) 0.2 k/uL (0-0.7); Eosinophils % (A) 2 %; HCT 36.5 % (34.0-46.0); HGB 11.8 gm/dL (11.4-16.0); Lymphocytes # (A) 1.3 k/uL (1.0-4.8); Lymphocytes % (A) 18 %; MCH 30.7 pg (25.0-35.0); MCHC 32.3 g/dL (31.0-37.0); Mean Platelet Volume 7.1; Monocytes # (A) 0.4 k/uL (0-1.0); Monocytes % (A) 6 %; Neutrophils # (A) 5.1 k/uL (1.3-7.7); Neutrophils % (A) 71 %; Platelet Count 258 k/uL (150-450); RBC 3.84 m/uL (3.80-5.40); RDW 12.5 % (11.5-15.5); WBC 7.2 k/uL (3.8-10.6)
[2022-04-04] MEDS ORDERED: BACLOFEN 10 MG TAB PO STA (21:52)
[2022-04-04] MEDS ORDERED: FAMOTIDINE 20 MG/2 ML VIAL IV STA (21:52)
[2022-04-04 21:55] LABS: Appearance,Urine Clear (Clear); Bilirubin,Urine Negative (Negative); Blood,Urine Negative (Negative); Color,Urine Light Yellow; Glucose,Urine (UA) 3+ (Negative); Ketones,Urine Negative (Negative); Leukocyte Esterase,Urine Negative (Negative); Nitrite,Urine Negative (Negative); Protein,Urine Negative (Negative); Specific Gravity,Urine 1.013 (1.001-1.035); Urobilinogen,Urine <2.0 mg/dL (<2.0)
[2022-04-04 22:01] LABS: ALT 21 U/L (4-34); AST 19 U/L (14-36); African American GFR (CKD) >90 (>60 ml/min/1.73 sqM); Albumin 3.4 g/dL (3.5-5.0); Alkaline Phosphatase 144 U/L (38-126); Amylase 90 U/L (30-110); Anion Gap 5 mmol/L; Blood Urea Nitrogen 13 mg/dL (7-17); Calcium 8.6 mg/dL (8.4-10.2); Carbon Dioxide 29 mmol/L (22-30); Chloride 99 mmol/L (98-107); Glucose 323 mg/dL (74-99); Lipase 109 U/L (23-300); Non-African American GFR(CKD) 88 (>60 ml/min/1.73 sqM); Potassium 3.5 mmol/L (3.5-5.1); Sodium 133 mmol/L (137-145); Total Bilirubin 0.3 mg/dL (0.2-1.3); Total Protein 5.8 g/dL (6.3-8.2)
[2022-04-04] MEDS ORDERED: HYDROmorphone 1 MG/ML 1 ML SYRINGE IVP STA (22:09)
--- NOTE | 2022-04-04 22:11 | XR ---
EXAMINATION TYPE: XR chest 1V portable DATE OF EXAM: 04/04/2022 COMPARISON: 03/30/2022 HISTORY: Pain TECHNIQUE: Single view FINDINGS: Heart and mediastinum are normal. Lungs are clear. Diaphragm is normal. Bony thorax is inta ct pulmonary vascularity is normal. There is right-sided central venous catheter with tip in the supe rior vena cava. IMPRESSION: Normal chest. No adverse change.
[2022-04-04 22:47] VITALS: BP 136/76; PULSE 81; RESP 16
[2022-04-04 23:23] LABS: Glucose,Whole Blood 286 mg/dL (70-110)
[2022-04-04] MEDS ORDERED: SODIUM CHLORIDE 0.9% 1,000 ML IV ONE (23:26)
[2022-04-04] MEDS ORDERED: HYDROmorphone 0.5 MG/0.5 ML SYRINGE IVP STA (23:57)
== END 2022-04-05 00:07 | disposition home or self-care (01) ==
LOC: EC 17:10
DX: D35.01 Benign neoplasm of right adrenal gland (principal); R07.89 Other chest pain; I11.0 Hypertensive heart disease with heart failure; E11.9 Type 2 diabetes mellitus without complications; Z82.49 Family history of ischemic heart disease and other diseases of the circulatory system; F17.200 Nicotine dependence, unspecified, uncomplicated; Z88.5 Allergy status to narcotic agent; Z88.1 Allergy status to other antibiotic agents; Z88.8 Allergy status to other drugs, medicaments and biological substances; Z88.9 Allergy status to unspecified drugs, medicaments and biological substances; Z88.3 Allergy status to other anti-infective agents
CPT/HCPCS: 36415; 93005; 80053; 82150; 83605; 83690; 84484; 85025; 85730; 81003; 71045; 74018; 70450; 74176; 99285; 96374; 96375; 96376; 96361; J1170

== ENCOUNTER 2022-04-07 13:25 | Observation (INO) | payer OTHER ==
[2022-04-07] MEDS ORDERED: HYDROmorphone 0.5 MG/0.5 ML SYRINGE IVP STA (13:42)
[2022-04-07] MEDS ORDERED: ONDANSETRON 4 MG/2 ML VIAL IVP STA (13:42)
--- NOTE | 2022-04-07 13:46 | ED ---
General Adult HPI - General Chief complaint: Seizure Stated complaint: Fall, Head Injury, Seizure, Time Seen by Provider: 04/07/22 13:35 Source: patient, EMS, RN notes reviewed, old records reviewed Mode of arrival: EMS Limitations: no limitations - History of Present Illness Initial comments: This is a 52-year-old female presents emergency department from [facility]. Patient states she's been there for drinking she hasn't drink 2 weeks. Patient states she has a past medical history significant for atrial fibrillation pulmonary emboli from a clotting disorder and she is on Xarelto. Patient also states she has a history of congestive heart failure diabetes and high blood pressure. Patient states today she started having chest pain that radiated down her left arm which didn't feel right and she went to go to see the medical people at the [facility] and prior to getting there is a told her and EMS that she has had a seizure. Patient states she felt as though she hurt the right side of her ribs and according to staff she fell and hit her head. Patient still has some chest pain anteriorly but also has rib pain now on the ri t lateral aspect. Patient denies any abdominal pain patient denies vomiting or diarrhea but is nauseous. Patient denies any extremity pain. - Related Data Home Medications Medication Instructions Recorded Confirmed Apixaban [Eliquis] 5 mg PO BID 03/30/22 03/30/22 Aspirin 81 mg PO DAILY 03/30/22 03/30/22 Atorvastatin [Lipitor] 80 mg PO HS 03/30/22 03/30/22 Budesonide-Formot 160-4.5 Mcg 2 puff INHALATION RT-BID 03/30/22 03/30/22 [Symbicort 160-4.5 Mcg Inhaler] Colace 50mg 50 mg PO DAILY 03/30/22 03/30/22 DULoxetine HCL [Cymbalta] 30 mg PO DAILY 03/30/22 03/30/22 INSULIN LISPRO (HumaLOG) [humaLOG] 12 units SQ TID-W/MEALS 03/30/22 03/30/22 Insulin Glargine,Hum.rec.anlog 36 units SQ HS 03/30/22 03/30/22 [Lantus Solostar Pen] Isosorbide Mononitrate ER [Imdur] 30 mg PO DAILY 03/30/22 03/30/22 Levothyroxine Sodium [Synthroid] 50 mcg PO DAILY 03/30/22 03/30/22 Loratadine 10 mg PO DAILY 03/30/22 03/30/22 Lurasidone [Latuda] 20 mg PO BID 03/30/22 03/30/22 Mesalamine [Lialda] 2.4 gm PO DAILY 03/30/22 03/30/22 carvediloL [Coreg] 25 mg PO BID 03/30/22 03/30/22 dilTIAZem HCL [Cardizem CD] 120 mg PO DAILY 03/30/22 03/30/22 hydroCHLOROthiazide 25 mg PO DAILY 03/30/22 03/30/22 levETIRAcetam [Keppra] 1,000 mg PO BID 03/30/22 03/30/22 lisinopriL [Prinivil] 20 mg PO DAILY 03/30/22 03/30/22 traZODone HCL 150 mg PO HS 03/30/22 03/30/22 Allergies Allergy/AdvReac Type Severity Reaction Status Date / Time acetaminophen [From Tylenol] Allergy Anaphylaxis Verified 04/04/22 18:31 & Itching & Hives dicyclomine [From Bentyl] Allergy Anaphylaxis Verified 04/04/22 18:31 Fish Containing Products Allergy Anaphylaxis Verified 04/04/22 18:31 [Fish] & Itching & Hives ibuprofen [From Motrin] Allergy Anaphylaxis Verified 04/04/22 18:31 & Itching & Hives Iodinated Contrast Media Allergy Itching Verified 04/04/22 18:31 ketorolac [From Toradol] Allergy Anaphylaxis Verified 04/04/22 18:31 tramadol Allergy Anaphylaxis Verified 04/04/22 18:31 & Itching & Hives Review of Systems ROS Statement: Those systems with pertinent positive or pertinent negative responses have been documented in the HPI. ROS Other: All systems not noted in ROS Statement are negative. Past Medical History Past Medical History: Atrial Fibrillation, Blood Disorder, Heart Failure, Diabetes Mellitus, Hypertension, Myocardial Infarction ([place]) Additional Past Medical History / Comment(s): factor 5, lupus , anemia Last Myocardial Infarction Date:: unk History of Any Multi-Drug Resistant Organisms: None Reported Past Surgical History: Cholecystectomy, Hysterectomy Past Psychological History: No Psychological Hx Reported Smoking Status: Current every day smoker Past Alcohol Use History: Abuse, Daily Past Drug Use History: None Reported General Exam - General Exam Comments Initial Comments: GENERAL: Patient is well-developed and well-nourished. Patient is nontoxic and well- hydrated and is in mild distress. ENT: Neck is soft and supple. No significant lymphadenopathy is noted. Oropharynx is clear. Moist mucous membranes. Neck has full range of motion without elic iting any pain. EYES: The sclera were anicteric and conjunctiva were pink and moist. Extraocular m ovements were intact and pupils were equal round and reactive to light. Eyelids were unremarkable. PULMONARY: Unlabored respirations. Good breath sounds bilaterally. No audible rales rhonchi or wheezing was noted. CARDIOVASCULAR: There is a regular rate and rhythm without any murmurs gallops or rubs. ABDOMEN: Soft and nontender with normal bowel sounds. SKIN: Skin is clear with no lesions or rashes and otherwise unremarkable. NEUROLOGIC: Patient is alert and oriented x3. Cranial nerves II through XII are grossly intact. Motor and sensory are also intact. Normal speech, volume and content. Symmetrical smile. MUSCULOSKELETAL: Normal extremities with adequate strength and full range of motion. LYMPHATICS: No significant lymphadenopathy is noted PSYCHIATRIC: Normal psychiatric evaluation. Limitations: no limitations Course Vital Signs 04/07/22 13:31 Temperature 98.6 F Pulse Rate 92 Respiratory 18 Rate Blood Pressure 143/102 O2 Sat by Pulse 99 Oximetry Medical Decision Making - Medical Decision Making EKG shows sinus rhythm at 96 bpm WV interval 274 QRS is 92 QT interval 335 QTC is 389 per patient's EKG shows no ST segment elevation or depression. CT of the brain and C-spine showed no acute abnormality. Chest x-ray shows no acute abnormality. Patient's chest pain did improve however the patient was demanding pain m edication and she is ALLERGIC to everything but narcotics. Patient then requested IV Benadryl with IV Toradol may be that would be okay. Patient was irate that she wasn't getting any more narcotics. I spoke with sounds physicians they agreed to admit the patient admitted the patient wrote admitting orders. - Lab Data Result diagrams: 04/07/22 13:48 04/07/22 13:48 Lab Results 04/07/22 04/07/22 04/07/22 Range/Units 13:48 13:48 13:48 WBC 5.8 (3.8-10.6) k/uL RBC 3.89 (3.80-5.40) m/uL Hgb 12.2 (11.4-16.0) gm/dL Hct 36.5 (34.0-46.0) % MCV 93.6 (80.0-100.0) fL MCH 31.3 (25.0-35.0) pg MCHC 33.4 (31.0-37.0) g/dL RDW 12.5 (11.5-15.5) % Plt Count 236 (150-450) k/uL MPV 6.8 Neutrophils % 72 % Lymphocytes % 18 % Monocytes % 5 % Eosinophils % 2 % Basophils % 1 % Neutrophils # 4.2 (1.3-7.7) k/uL Lymphocytes # 1.0 (1.0-4.8) k/uL Monocytes # 0.3 (0-1.0) k/uL Eosinophils # 0.1 (0-0.7) k/uL Basophils # 0.1 (0-0.2) k/uL PT 9.5 (9.0-12.0) sec INR 0.9 (<1.2) APTT 23.0 (22.0-30.0) sec Sodium 138 (137-145) mmol/L Potassium 3.9 (3.5-5.1) mmol/L Chloride 104 (98-107) mmol/L Carbon Dioxide 26 (22-30) mmol/L Anion Gap 8 mmol/L BUN 12 (7-17) mg/dL Creatinine 0.77 (0.52-1.04) mg/dL Est GFR (CKD-EPI)AfAm >90 (>60 ml/min/1.73 sqM) Est GFR (CKD-EPI)NonAf 90 (>60 ml/min/1.73 sqM) Glucose 250 H (74-99) mg/dL Calcium 8.5 (8.4-10.2) mg/dL Magnesium 1.7 (1.6-2.3) mg/dL Total Bilirubin 0.3 (0.2-1.3) mg/dL AST 20 (14-36) U/L ALT 22 (4-34) U/L Alkaline Phosphatase 137 H (38-126) U/L Troponin I (0.000-0.034) ng/mL Total Protein 6.0 L (6.3-8.2) g/dL Albumin 3.6 (3.5-5.0) g/dL 04/07/22 Range/Units 13:48 WBC (3.8-10.6) k/uL RBC (3.80-5.40) m/uL Hgb (11.4-16.0) gm/dL Hct (34.0-46.0) % MCV (80.0-100.0) fL MCH (25.0-35.0) pg MCHC (31.0-37.0) g/dL RDW (11.5-15.5) % Plt Count (150-450) k/uL MPV Neutrophils % % Lymphocytes % % Monocytes % % Eosinophils % % Basophils % % Neutrophils # (1.3-7.7) k/uL Lymphocytes # (1.0-4.8) k/uL Monocytes # (0-1.0) k/uL Eosinophils # (0-0.7) k/uL Basophils # (0-0.2) k/uL PT (9.0-12.0) sec INR (<1.2) APTT (22.0-30.0) sec Sodium (137-145) mmol/L Potassium (3.5-5.1) mmol/L Chloride (98-107) mmol/L Carbon Dioxide (22-30) mmol/L Anion Gap mmol/L BUN (7-17) mg/dL Creatinine (0.52-1.04) mg/dL Est GFR (CKD-EPI)AfAm (>60 ml/min/1.73 sqM) Est GFR (CKD-EPI)NonAf (>60 ml/min/1.73 sqM) Glucose (74-99) mg/dL Calcium (8.4-10.2) mg/dL Magnesium (1.6-2.3) mg/dL Total Bilirubin (0.2-1.3) mg/dL AST (14-36) U/L ALT (4-34) U/L Alkaline Phosphatase (38-126) U/L Troponin I <0.012 (0.000-0.034) ng/mL Total Protein (6.3-8.2) g/dL Albumin (3.5-5.0) g/dL Disposition Clinical Impression: Chest pain, Fall, Seizure, Alcohol abuse Disposition: ADMITTED IP TO THIS HOSP Referrals: None,Stated [Primary Care Provider] - 1-2 days Time of Disposition: 15:37
[2022-04-07 14:07] LABS: Basophils # (A) 0.1 k/uL (0-0.2); Basophils % (A) 1 %; Eosinophils # (A) 0.1 k/uL (0-0.7); Eosinophils % (A) 2 %; HCT 36.5 % (34.0-46.0); HGB 12.2 gm/dL (11.4-16.0); Lymphocytes % (A) 18 %; MCH 31.3 pg (25.0-35.0); MCHC 33.4 g/dL (31.0-37.0); MCV 93.6 fL (80.0-100.0); Mean Platelet Volume 6.8; Monocytes # (A) 0.3 k/uL (0-1.0); Monocytes % (A) 5 %; Neutrophils # (A) 4.2 k/uL (1.3-7.7); Neutrophils % (A) 72 %; Platelet Count 236 k/uL (150-450); RBC 3.89 m/uL (3.80-5.40); RDW 12.5 % (11.5-15.5); WBC 5.8 k/uL (3.8-10.6)
[2022-04-07 14:20] LABS: INR 0.9 (<1.2); Prothrombin Time 9.5 sec (9.0-12.0)
[2022-04-07 14:24] LABS: ALT 22 U/L (4-34); AST 20 U/L (14-36); African American GFR (CKD) >90 (>60 ml/min/1.73 sqM); Albumin 3.6 g/dL (3.5-5.0); Alkaline Phosphatase 137 U/L (38-126); Anion Gap 8 mmol/L; Blood Urea Nitrogen 12 mg/dL (7-17); Calcium 8.5 mg/dL (8.4-10.2); Carbon Dioxide 26 mmol/L (22-30); Chloride 104 mmol/L (98-107); Glucose 250 mg/dL (74-99); Magnesium 1.7 mg/dL (1.6-2.3); Non-African American GFR(CKD) 90 (>60 ml/min/1.73 sqM); Potassium 3.9 mmol/L (3.5-5.1); Sodium 138 mmol/L (137-145); Total Bilirubin 0.3 mg/dL (0.2-1.3)
--- NOTE | 2022-04-07 14:49 | CT ---
EXAMINATION TYPE: CT brain cspine wo con DATE OF EXAM: 04/07/2022 COMPARISON: CT brain 04/04/2022 HISTORY: Trauma CT DLP: 1637.8 mGycm Automated exposure control for dose reduction was used. Ventricles have normal size. There is no mass effect or midline shift. No sign of intracranial hemorr pepe. The calvarium is intact. There is normal aeration of the mastoid sinuses. These cervical vertebra have normal spacing and alignment. Posterior elements are intact. No compress ion fracture. Facet joints are intact. Prevertebral soft tissues are intact. IMPRESSION: Negative CT scan of the brain. Negative CT scan of the cervical spine.
--- NOTE | 2022-04-07 15:36 | XR ---
EXAMINATION TYPE: XR chest 2V DATE OF EXAM: 04/07/2022 COMPARISON: 04/04/2022 HISTORY: Chest pain TECHNIQUE: FINDINGS: Heart is normal. Lungs are clear of infiltrate. There is right-sided central venous cathete r with tip in the superior vena cava. There is no pleural effusion. Bony thorax is intact. IMPRESSION: No active cardiopulmonary disease. Normal heart. No change.
[2022-04-07] MEDS ORDERED: SODIUM CHLORIDE 0.9% 1,000 ML IV ONE (15:38)
[2022-04-07] MEDS ORDERED: NITROGLYCERIN SL TABS 0.4 MG TAB SUBLINGUAL PRN (15:39)
--- NOTE | 2022-04-07 16:23 | P.HPIM ---
History of Present Illness H&P Date: 04/07/22 Chief Complaint: Chest pain This is a very pleasant 52-year-old female who came to emergency department for evaluation of chest pain Patient has history of atrial fibrillation and she has been on Eliquis for this, Andrea Cardizem; history of congestive heart failure diabetes mellitus hypertension seizure disorder coronary artery disease, pulmonary embolism, factor V Leiden mutation, bipolar disorder, chronic alcoholism Patient currently stays at [facility]. She was just discharged from our hospital 1 week ago where she was hospitalized again for chest pain and at that time she refused dobutamine stress test recommended by cardiology. Patient states that today she was in her usual state of health. She was smoking outside when she started feeling retrosternal sharp chest pain. The pain was mostly provoked by deep breaths and movements and cough. No radiation. No other abbreviating or alleviating factors. No shortness of breath no dizziness. Patient states that during this episode of chest pain she started shaking and then next thing she remembers that she was told that she had a seizure by personnel at the [facility]. She was brought to emergency department. Currently she is denying any chest pain. She stated that she was given Dilaudid the pain resolved. She is very tender over the costochondral joints bi laterally. She states that she takes a deep breath or coughs she feels the pain. She states that she was also having some cough with blood-tinged sputum. She denies any headache or vision changes fever or chills. Denies any abdominal pain changes in the bowel movement habits. Denies any focal weakness or discomfort. Emergency department initial blood work was stable. CT of the head and cervical spine without acute abnormalities. Chest x-ray without any acute process or rib fractures. EKG unchanged from before. Troponin 1 within normal limits. Past Medical History Past Medical History: Atrial Fibrillation, Blood Disorder, Heart Failure, Diabet es Mellitus, Hypertension, Myocardial Infarction ([place]) Additional Past Medical History / Comment(s): factor 5, lupus , anemia Last Myocardial Infarction Date:: unk History of Any Multi-Drug Resistant Organisms: None Reported Past Surgical History: Cholecystectomy, Hysterectomy Past Psychological History: No Psychological Hx Reported Smoking Status: Current every day smoker Past Alcohol Use History: Abuse, Daily Past Drug Use History: None Reported Medications and Allergies Home Medications Medication Instructions Recorded Confirmed Type Apixaban [Eliquis] 5 mg PO BID 03/30/22 04/07/22 History Aspirin 81 mg PO DAILY 03/30/22 04/07/22 History Atorvastatin [Lipitor] 80 mg PO HS 03/30/22 04/07/22 History Budesonide-Formot 160-4.5 Mcg 2 puff INHALATION RT-BID 03/30/22 04/07/22 History [Symbicort 160-4.5 Mcg Inhaler] Colace 50mg 50 mg PO DAILY 03/30/22 04/07/22 History DULoxetine HCL [Cymbalta] 30 mg PO DAILY 03/30/22 04/07/22 History INSULIN LISPRO (HumaLOG) [humaLOG] 12 units SQ TID-W/MEALS 03/30/22 04/07/22 History Insulin Glargine,Hum.rec.anlog 36 units SQ HS 03/30/22 04/07/22 History [Lantus Solostar Pen] Isosorbide Mononitrate ER [Imdur] 30 mg PO DAILY 03/30/22 04/07/22 History Levothyroxine Sodium [Synthroid] 50 mcg PO DAILY 03/30/22 04/07/22 History Loratadine 10 mg PO DAILY 03/30/22 04/07/22 History Lurasidone [Latuda] 20 mg PO BID 03/30/22 04/07/22 History Mesalamine [Lialda] 2.4 gm PO DAILY 03/30/22 04/07/22 History carvediloL [Coreg] 25 mg PO BID 03/30/22 04/07/22 History dilTIAZem HCL [Cardizem CD] 120 mg PO DAILY 03/30/22 04/07/22 History hydroCHLOROthiazide 25 mg PO DAILY 03/30/22 04/07/22 History levETIRAcetam [Keppra] 1,000 mg PO BID 03/30/22 04/07/22 History lisinopriL [Prinivil] 20 mg PO DAILY 03/30/22 04/07/22 History traZODone HCL 150 mg PO HS 03/30/22 04/07/22 History Allergies Allergy/AdvReac Type Severity Reaction Status Date / Time acetaminophen [From Tylenol] Allergy Anaphylaxis Verified 04/07/22 16:00 & Itching & Hives dicyclomine [From Bentyl] Allergy Anaphylaxis Verified 04/07/22 16:00 Fish Containing Products Allergy Anaphylaxis Verified 04/07/22 16:00 [Fish] & Itching & Hives ibuprofen [From Motrin] Allergy Anaphylaxis Verified 04/07/22 16:00 & Itching & Hives Iodinated Contrast Media Allergy Itching Verified 04/07/22 16:00 ketorolac [From Toradol] Allergy Anaphylaxis Verified 04/07/22 16:00 tramadol Allergy Anaphylaxis Verified 04/07/22 16:00 & Itching & Hives Physical Exam Vitals: Vital Signs Temp Pulse Resp BP Pulse Ox 04/07/22 13:31 98.6 F 92 18 143/102 99 Intake and Output 04/07/22 04/07/22 04/07/22 06:59 14:59 22:59 Other: Weight 99.79 kg - Constitutional General appearance: cooperative, no acute distress - EENT Eyes: no abnormal pupil, no anicteric sclerae, no disc margins sharp, EOMI, PERRLA, no photophobia, no ptosis, no scleral icterus, normal appearance ENT: normal oropharynx, no pharyngeal erythema, no tonsillar exudates, no tonsillar swelling Ears: bilateral: normal - Neck Neck: no lymphadenopathy, normal ROM, no rigidity, no stridor, no thyromegaly - Respiratory Respiratory: bilateral: CTA - Cardiovascular Rhythm: regular Heart sounds: normal: S1, S2 Abnormal Heart Sounds: no systolic murmur, no diastolic murmur, no rub, no S3 Gallop, no S4 Gallop - Gastrointestinal General gastrointestinal: normal bowel sounds, no organomegaly, soft, no tenderness - Integumentary Integumentary: normal, normal turgor, no rash - Neurologic Speech is fluent and coherent, pupils are round and reactive to light symmet rical, extraocular movements are intact, no nystagmus, no facial activity, tongue protrudes in midline, sensitivity for light touch over the face preserved Motor strength is 5 out of 5 upper and lower extremities proximally and distally; DTRs in patellar are 1+ bilateral, no ankle clonus, Flexeril respond to bilateral, finger to nose and heel to barron normal Neurologic: CNII-XII intact - Musculoskeletal Musculoskeletal: strength equal bilaterally - Psychiatric Psychiatric: A&O x's 3, appropriate affect, intact judgment & insight Results CBC & Chem 7: 04/07/22 13:48 04/07/22 13:48 Labs: Abnormal Lab Results - Last 24 Hours (Table) 04/07/22 Range/Units 13:48 Glucose 250 H (74-99) mg/dL Alkaline Phosphatase 137 H (38-126) U/L Total Protein 6.0 L (6.3-8.2) g/dL Assessment and Plan Assessment: #Chest pain Atypical features Tenderness over the costochondral joints and provoked by cough and deep breaths, possibly component of inflammation Troponin 1 negative EKG without acute abnormalities Chest x-ray: Without acute abnormalities Repeat troponin; check d-dimer, ESR and CRP Echocardiogram cardiology consultation Likely will need stress test and a history of coronary artery disease which patient refused last time but it's agreeable this time Keep on telemetry #Seizure disorder Continue Keppra 1 g twice a day Check Keppra levels Seizures precautions Neurology consultation #History of atrial fibrillation Continue Eliquis, Coreg, Cardizem CT of the head without acute abnormalities #CHF Unknown EF Patient appears clinically euvolemic Continue Coreg lisinopril Echocardiogram ordered #Bipolar disorder Continue Cymbalta and Latuda #Chronic alcoholism Last drink 2 weeks ago Continue with thiamine, multivitamin #Coronary artery disease Continue aspirin, statin, beta safia #History of pulmonary embolism Continue Eliquis In view of new atypical chest pain we will check d-dimer She does mention some blood tinge sputum, may need to consult pulmonary chest x-rays without acute abnormalities ALLERGIC to iodine contrast and cannot have immediate CAT scan Admitted under observation DVT prophylaxis: She is on Eliquis
[2022-04-07] MEDS ORDERED: MAG HYDROX/AL HYDROX/SIMETH 30 ML CUP PO PRN (16:24)
[2022-04-07] MEDS ORDERED: NALOXONE 0.4 MG/ML 1 ML VIAL IV PRN (16:24)
[2022-04-07] MEDS ORDERED: MAGNESIUM HYDROXIDE 2,400 MG/10 ML CUP PO PRN (16:24)
[2022-04-07] MEDS ORDERED: NITROGLYCERIN OINT 1 INCH/GM PACKET TOPICAL SCH (18:00)
[2022-04-07 18:21] LABS: Glucose,Whole Blood 338 mg/dL (70-110)
[2022-04-07] MEDS: HYDROmorphone 0.5 MG/0.5 ML SYRINGE IVP PRN (19:27)
[2022-04-07] MEDS: SYMBICORT 160-4.5 MCG INHALER INHALATION SCH (19:50)
[2022-04-07] MEDS ORDERED: MELATONIN 5 MG TABLET PO STA (19:55)
[2022-04-07] MEDS: SODIUM CHLORIDE 0.9% 1,000 ML IV SCH (20:09)
[2022-04-07] MEDS: INSULIN ASPART (NovoLOG) 100 UNIT/ML VIAL SQ SCH ×2 (20:09→22:08)
[2022-04-07] MEDS ORDERED: ATORVASTATIN 80 MG TAB PO SCH (21:00)
[2022-04-07] MEDS ORDERED: traZODone HCL 50 MG TAB PO SCH (21:00)
[2022-04-07 21:13] LABS: Glucose,Whole Blood 349 mg/dL (70-110)
[2022-04-07] MEDS ORDERED: INSULIN DETEMIR (LEVEMIR) 100 UNIT/ML SYR SQ SCH (21:45)
[2022-04-07] MEDS: LURASIDONE 20 MG TAB PO SCH (22:09)
[2022-04-07] MEDS: levETIRAcetam 500 MG TAB PO SCH (22:09)
[2022-04-07] MEDS: APIXABAN 5 MG TAB PO SCH (22:10)
[2022-04-07] MEDS: carvediloL 12.5 MG TAB PO SCH (22:11)
--- NOTE | 2022-04-07 22:29 | P.PN ---
Progress Note - Text Progress Note Date: 04/07/22 Initially notified by the RN that the patient is requesting IV Benadryl at 7:43 PM. Informed the RN that IV Benadryl is an inappropriate sleep aid, and melatonin was ordered for the patient. Informed by the RN at 8:59 PM that the patient refused melatonin stating that she is ALLERGIC to it and that the patient is stating she is having a reaction to the soap in the patient bathroom. The patient reported to the RN that her "throat is closing up" and that she is unable to swallow. She also reported a rash on both her arms. She requested for IV Benadryl and that the physician come see her. I subsequently saw and examined the patient at the bedside. The patient reiterated her above compl aints of being unable to swallow and experiencing wheezing. She also complained of bilateral upper extremity rash, pointing to what appeared to be old bruises and scars on both her arms. Denied experiencing chest discomfort or palpitations. General: Non-toxic, in no acute distress, no drooling noted, appears stated age, obese HEENT: NC/AT, anicteric sclerae, moist conjunctiva, no lid-lag, PERRLA Cardiovascular: S1/S2 wnl, no murmurs, rubs, or gallops Lungs: Clear to auscultation, no wheezing, normal respiratory effort, no accessory muscle use Abdominal: Soft, non-tender, non-distended, no guarding, rebound, or rigidity Skin: Warm, dry Extremities: No edema or contractures Psychiatric: Anxious affect The patient's actions are concerning for drug-seeking behavior. Offered the p atient Claritin and oral Benadryl which the patient refused. Informed the patient that if she develops any new rashes or any additional symptoms immediately let the RN know. Discussed the case in detail with the patient's RN. Continue to monitor closely for any signs of an allergic reaction. Hold off on IV benadryl at this time.
[2022-04-08 01:04] VITALS: RESP 18
[2022-04-08] MEDS: HYDROmorphone 0.5 MG/0.5 ML SYRINGE IVP PRN ×2 (01:34→07:42)
[2022-04-08 04:20] LABS: Glucose,Whole Blood 303 mg/dL (70-110)
[2022-04-08] MEDS: SODIUM CHLORIDE 0.9% 1,000 ML IV SCH (06:22)
[2022-04-08] MEDS: SYMBICORT 160-4.5 MCG INHALER INHALATION SCH (07:25)
[2022-04-08 07:49] LABS: Glucose,Whole Blood 136 mg/dL (70-110)
--- NOTE | 2022-04-08 08:27 | XR ---
EXAMINATION TYPE: XR hand complete LT, XR wrist complete LT DATE OF EXAM: 04/08/2022 COMPARISON: NONE INDICATION: Pain and swelling after fall TECHNIQUE: 4 views of the left wrist joint with 3 views of the left hand. FINDINGS: Slightly negative ulnar variance. No definite acute fracture line identified. IMPRESSION: No definite acute fracture or dislocation identified.
--- NOTE | 2022-04-08 08:29 | XR ---
EXAMINATION TYPE: XR forearm LT DATE OF EXAM: 04/08/2022 COMPARISON: NONE INDICATION: Pain and swelling after fall TECHNIQUE: 2 views of the left forearm FINDINGS: No definite acute fracture line identified. Rounded soft tissue calcification/accessory ossicle is se en at the palmar aspect of the hand. IMPRESSION: As above.
--- NOTE | 2022-04-08 08:31 | XR ---
EXAMINATION TYPE: XR knee complete LT DATE OF EXAM: 04/08/2022 COMPARISON: X-ray dated 03/31/2022 INDICATION: Pain and swelling after fall TECHNIQUE: 3 views of the left knee joint FINDINGS: Moderate degenerative changes of the left knee joint, appreciated previously. No definite acute fract ure line identified. Questionable small knee joint effusion. IMPRESSION: No definite acute fracture or dislocation identified.
[2022-04-08 08:38] VITALS: BP 105/68; PULSE 70; TEMP 98.2
[2022-04-08 08:39] LABS: Basophils # (A) 0.02 X 10*3/uL (0.00-0.10); Basophils % (A) 0.4 %; Eosinophils # (A) 0.12 X 10*3/uL (0.04-0.35); Eosinophils % (A) 2.5 %; HCT 34.5 % (37.2-46.3); Immature Grans, Automated 0.6 %; Lymphocytes # (A) 1.17 X 10*3/uL (0.90-5.00); Lymphocytes % (A) 24.6 %; MCH 30.5 pg (27.0-32.0); MCHC 31.9 g/dL (32.0-37.0); MCV 95.6 fL (80.0-97.0); Mean Platelet Volume 9.8 fL (9.5-12.2); Monocytes % (A) 12.6 %; NRBC Per 100 WBC 0 /100 WBCS (0.0-0.0); Neutrophils # (A) 2.82 X 10*3/uL (1.80-7.70); Neutrophils % (A) 59.3 %; Platelet Count 211 X 10*3/uL (140-440); RBC 3.61 X 10*6/uL (4.10-5.20); RDW 12.2 % (11.5-14.5); WBC 4.76 X 10*3/uL (4.50-10.00)
[2022-04-08] MEDS ORDERED: DILTIAZEM CD 120 MG CAP.ER.24H PO SCH (09:00)
[2022-04-08] MEDS ORDERED: LEVOTHYROXINE 50 MCG TAB PO SCH (09:00)
[2022-04-08] MEDS ORDERED: DOCUSATE 100 MG CAP PO SCH (09:00)
[2022-04-08] MEDS ORDERED: DULoxetine HCL 30 MG CAPSULE.DR PO SCH (09:00)
[2022-04-08] MEDS ORDERED: ISOSORBIDE MONONITRATE ER 30 MG TAB.ER.24H PO SCH (09:00)
[2022-04-08] MEDS ORDERED: ASPIRIN 81 MG PO SCH (09:00)
[2022-04-08] MEDS ORDERED: NICOTINE 14MG/24HR PATCH TRANSDERM SCH (09:00)
[2022-04-08 09:04] LABS: African American GFR (CKD) 98.9 (60.0-200.0); Blood Urea Nitrogen 9.2 mg/dL (9.0-27.0); Calcium 8.5 mg/dL (8.7-10.3); Carbon Dioxide 23.1 mmol/L (20.0-27.5); Chloride 108 mmol/L (96-109); Chol/HDL Ratio 2.34 Ratio; Glucose 245 mg/dL (70-110); LDL Cholesterol,Calculated 55.2 mg/dL (0.0-131.0); Non-African American GFR(CKD) 85.4 (60.0-200.0); Potassium 4.6 mmol/L (3.5-5.5); Sodium 140 mmol/L (135-145)
[2022-04-08 09:04] LABS: Glucose,Whole Blood 113 mg/dL (70-110)
[2022-04-08] MEDS: levETIRAcetam 500 MG TAB PO SCH (09:19)
[2022-04-08] MEDS: LURASIDONE 20 MG TAB PO SCH (09:20)
[2022-04-08] MEDS: carvediloL 12.5 MG TAB PO SCH (09:20)
[2022-04-08] MEDS: APIXABAN 5 MG TAB PO SCH (09:20)
--- NOTE | 2022-04-08 10:15 | CA ---
Transthoracic Echo Report Name: Winsome Zurita Age: 52 Gender: F : 1970 Exam Date: 04/08/2022 08:25 Exam Location: [facility] Ht (in): 64 Wt (lb): 220 Ordering Physician: Reggie Sun MD Attending/Referring Phys: Scientist Engineer Linda Napier RDCS Procedure CPT: Indications: CP Cardiac Hx: Technical Quality: Fair Contrast 1: Total Dose (mL): Contrast 2: Total Dose (mL): MEASUREMENTS (Male / Female) Normal Values 2D ECHO LV Diastolic Diameter PLAX 3.9 cm 4.2 - 5.9 / 3.9 - 5.3 cm LV Systolic Diameter PLAX 3.0 cm IVS Diastolic Thickness 1.1 cm 0.6 - 1.0 / 0.6 - 0.9 cm LVPW Diastolic Thickness 1.4 cm 0.6 - 1.0 / 0.6 - 0.9 cm LV Relative Wall Thickness 0.6 RV Internal Dim ED PLAX 2.5 cm LA Volume 49.4 cm??? 18 - 58 / 22 - 52 cm??? M-MODE Aortic Root Diameter MM 2.7 cm LA Systolic Diameter MM 3.3 cm LA Ao Ratio MM 1.2 AV Cusp Separation MM 1.7 cm DOPPLER AV Peak Velocity 143.0 cm/s AV Peak Gradient 8.2 mmHg LVOT Peak Velocity 103.1 cm/s LVOT Peak Gradient 4.2 mmHg MV Area PHT 3.6 cm??? Mitral E Point Velocity 73.6 cm/s Mitral A Point Velocity 67.6 cm/s Mitral E to A Ratio 1.1 MV Deceleration Time 210.4 ms MV E' Velocity 8.0 cm/s Mitral E to MV E' Ratio 9.2 TR Peak Velocity 241.8 cm/s TR Peak Gradient 23.4 mmHg Right Ventricular Systolic Press 28.4 mmHg FINDINGS Left Ventricle Mildly increased left ventricular wall thickness. Normal left ventricular systolic function with no obvious regional wall motion abnormalities. Normal left ventricular diastolic filling pattern. Left ventricular ejection fraction is estimated at 55-60 %. Right Ventricle Normal right ventricular size and function. Right ventricular systolic pressure within normal limits. Right Atrium Normal right atrial size. Left Atrium Normal left atrial size. No evidence for an atrial septal defect. Mitral Valve Structurally normal mitral valve. No mitral stenosis, regurgitation or prolapse. Aortic Valve Trileaflet aortic valve. No aortic valve stenosis or regurgitation. Aortic valve sclerosis. Tricuspid Valve Structurally normal tricuspid valve. Mild tricuspid regurgitation. Pulmonic Valve Trace pulmonic regurgitation. Pericardium No pericardial effusion. Aorta Normal size aortic root and proximal ascending aorta. CONCLUSIONS Preserved LV size and systolic function Normal RV size and function Previewed by: Dr. Brayan Blackmon MD (Electronically Signed) Final Date: 08 April 2022 10:14
--- NOTE | 2022-04-08 10:47 | P.CNNES ---
History of Present Illness Consult date: 04/08/22 Requesting physician: Delio Joe Reason for Consult: seizure History of Present Illness: This is a 52-year-old woman with history of seizure, atrial fibrillation on eliquis, diabetes mellitus, congestive heart failure, coronary artery disease, pulmonary embolism hypertension, lupus, factor V, bipolar, heavy alcohol use, cocaine use and tobacco use who presented to our facility on 04/07/2022 because of the seizure patient stated that that she went to [facility] because of her alcohol use which she drinks half of fifth daily and stated her last drink was on 03/27/2022 and day yesterday and she had 2 seizure-like activity and was told she had generalized tonic-clonic seizure she stated that she had seizures since the age of 15-16 years old and is on Keppra 1 g twice a day and was supposed to be on Dilantin 300 mg daily at bedtime and the last Dilantin use was about a month ago which she ran out of medication. In the past she stated she was followed up with the neurology team over to [facility] and has not see them in years. She also uses a crack cocaine and the last use was on 2021 and she smokes 3-4 cigarettes a day. She feels she is back to baseline. No further seizures since the patient has been in our facility. She denies of any headaches, focal weakness. Some of the workup in our facility consisted of: CT of the head is reported as negative. I personally reviewed the CT of the head and I agree there is no acute or subacute ischemia there is no encephalomalacia shows that was able to the patient there is no reciprocal hemorrhage. CT cervical spine is reported as negative. I personally reviewed that the patient's labs CBC with differential as well as chemistry panel and ESR and nothing is reactive that patients with reported to generalized tonic-clonic seizures you would expect reactive elevated white blood cell creatinine abnormal labs which she does not have. She does have underlying uncontrolled diabetes mellitus and is on insulin pump. Review of Systems Review of system: The 12 point system was reviewed and apparent positive and negative per HPI. Past Medical History Past Medical History: Atrial Fibrillation, Blood Disorder, Heart Failure, Diabetes Mellitus, Hypertension, Myocardial Infarction ([place]) Additional Past Medical History / Comment(s): factor 5, lupus , anemia Last Myocardial Infarction Date:: unk History of Any Multi-Drug Resistant Organisms: None Reported Past Surgical History: Cholecystectomy, Hysterectomy Past Psychological History: No Psychological Hx Reported Smoking Status: Current every day smoker Past Alcohol Use History: Abuse, Daily Past Drug Use History: None Reported Medications and Allergies Home Medications Medication Instructions Recorded Confirmed Type Apixaban [Eliquis] 5 mg PO BID 03/30/22 04/07/22 History Aspirin 81 mg PO DAILY 03/30/22 04/07/22 History Atorvastatin [Lipitor] 80 mg PO HS 03/30/22 04/07/22 History Budesonide-Formot 160-4.5 Mcg 2 puff INHALATION RT-BID 03/30/22 04/07/22 History [Symbicort 160-4.5 Mcg Inhaler] Colace 50mg 50 mg PO DAILY 03/30/22 04/07/22 History DULoxetine HCL [Cymbalta] 30 mg PO DAILY 03/30/22 04/07/22 History INSULIN LISPRO (HumaLOG) [humaLOG] 12 units SQ TID-W/MEALS 03/30/22 04/07/22 History Insulin Glargine,Hum.rec.anlog 36 units SQ HS 03/30/22 04/07/22 History [Lantus Solostar Pen] Isosorbide Mononitrate ER [Imdur] 30 mg PO DAILY 03/30/22 04/07/22 History Levothyroxine Sodium [Synthroid] 50 mcg PO DAILY 03/30/22 04/07/22 History Loratadine 10 mg PO DAILY 03/30/22 04/07/22 History Lurasidone [Latuda] 20 mg PO BID 03/30/22 04/07/22 History Mesalamine [Lialda] 2.4 gm PO DAILY 03/30/22 04/07/22 History carvediloL [Coreg] 25 mg PO BID 03/30/22 04/07/22 History dilTIAZem HCL [Cardizem CD] 120 mg PO DAILY 03/30/22 04/07/22 History hydroCHLOROthiazide 25 mg PO DAILY 03/30/22 04/07/22 History levETIRAcetam [Keppra] 1,000 mg PO BID 03/30/22 04/07/22 History lisinopriL [Prinivil] 20 mg PO DAILY 03/30/22 04/07/22 History traZODone HCL 150 mg PO HS 03/30/22 04/07/22 History Allergies Allergy/AdvReac Type Severity Reaction Status Date / Time acetaminophen [From Tylenol] Allergy Anaphylaxis Verified 04/07/22 16:00 & Itching & Hives dicyclomine [From Bentyl] Allergy Anaphylaxis Verified 04/07/22 16:00 Fish Containing Products Allergy Anaphylaxis Verified 04/07/22 16:00 [Fish] & Itching & Hives ibuprofen [From Motrin] Allergy Anaphylaxis Verified 04/07/22 16:00 & Itching & Hives Iodinated Contrast Media Allergy Itching Verified 04/07/22 16:00 ketorolac [From Toradol] Allergy Anaphylaxis Verified 04/07/22 16:00 tramadol Allergy Anaphylaxis Verified 04/07/22 16:00 & Itching & Hives Physical Examination - Vital Signs Vital Signs: Vital Signs Temp Pulse Pulse Resp BP BP Pulse Ox 04/08/22 07:00 98.2 F 70 18 105/68 98 04/08/22 00:58 97.9 F 91 18 117/72 97 04/07/22 20:00 97.9 F 88 17 144/91 99 04/07/22 18:37 98.9 F 87 18 139/74 100 04/07/22 13:31 98.6 F 92 18 143/102 99 Intake and Output 04/07/22 04/08/22 04/08/22 22:59 06:59 14:59 Intake Total 240 Balance 240 Intake: Oral 240 Other: Voiding Method Toilet Toilet Toilet # Voids 2 1 Weight 99.79 kg GENERAL: The patient is lying in bed and is not in acute distress. CHEST: The heart rate is regular rate rhythm. No murmurs to auscultation. LUNG: Clear to auscultation bilaterally no wheezing noted throughout. Not labored breathing. ABDOMEN/GI: Bowel sounds present in all 4 quadrants. No tenderness to palpation throughout. NEUROLOGICAL: Higher mental function: The patient is awake, alert, oriented to self, place and time. Patient is following commands. No aphasia and no neglect. Cranial nerves: The pupils are round, equal and reactive to light and accommodation. Visual paula are full to confrontation throughout. Extraocular movement is intact no nystagmus is noted. Facial sensation is normal to touch throughout. The facial strength is normal throughout. Hearing is normal bilaterally to hand rub. Tongue is midline and moved [id number] without any difficulty. No dysarthria is noted. Shoulder shrug is normal bilaterally. Motor: The strength is 5 over 5 throughout. Normal tone and bulk. Cerebellum: Normal finger to nose bilaterally. Sensation: Sensation is normal to touch throughout. Reflexes (right/left): 2+ throughout except ankles are 1+ bilaterally. Plantars are downgoing bilaterally. Results - Laboratory Findings CBC and BMP: 04/08/22 05:31 04/08/22 05:31 Abnormal Lab Findings: Abnormal Labs 04/07/22 04/07/22 04/07/22 13:48 18:19 20:00 RBC Hgb Hct MCHC Anion Gap BUN/Creatinine Ratio Glucose 250 H POC Glucose (mg/dL) 338 H Calcium Alkaline Phosphatase 137 H C-Reactive Protein 0.90 H Total Protein 6.0 L HDL Cholesterol 04/07/22 04/08/22 04/08/22 21:11 04:18 05:31 RBC Hgb Hct MCHC Anion Gap 8.90 L BUN/Creatinine Ratio 11.50 L Glucose 245 H POC Glucose (mg/dL) 349 H 303 H Calcium 8.5 L Alkaline Phosphatase C-Reactive Protein Total Protein HDL Cholesterol 60.80 H 04/08/22 04/08/22 04/08/22 05:31 07:48 09:03 RBC 3.61 L Hgb 11.0 L Hct 34.5 L MCHC 31.9 L Anion Gap BUN/Creatinine Ratio Glucose POC Glucose (mg/dL) 136 H 113 H Calcium Alkaline Phosphatase C-Reactive Protein Total Protein HDL Cholesterol Assessment and Plan Assessment: Reported seizure-like activity over [place] in which she had according to the patient to generalized tonic-clonic seizure. Upon reviewing the labs the seems normal except for her uncontrolled diabetes and her episode possibly is nonepileptic in nature History of seizures last seizure was 9 month ago. Patient has not been getting Dilantin her home dose for the last 1 month since she ran out. Diabetes mellitus on insulin pump Atrial fibrillation on eliquis, Congestive heart failure Coronary artery disease History of pulmonary arms him Lupus Factor V Leiden Bipolar Alcohol use Cocaine use Tobacco use Plan: Recommended to continue her Dilantin 300 mg daily at bedtime since the patient stated that she was on it for long period of time and she ran out for the last 1 month. Continue Keppra 1 g twice a day. I highly recommend for an ambulatory or epilepsy moderate urine as an outpatient to capture these episodes to delineate whether the patient has epileptic versus nonepileptic versus combination of both. If she does have nonepileptic in nature. Geoff then I recommend tapering down her medication as an outpatient and we'll defer to her neurologist as outpatient Every 4 hours neuro checks Patient was counseled on alcohol cessation, tobacco cessation and cessation of her cocaine use Since the patient has not had any further seizures patient is clear for discharge from neurological perspective. Patient is to follow up with her neurologist as an outpatient within 1-2 weeks. The plan is discussed with the patient and the primary team Neurology will sign off. Please reconsult if needed. Thank you for consultation. Krishna Leal M.D. Neuro-hospitalist Time with Patient: Greater than 30
--- NOTE | 2022-04-08 11:31 | P.DS ---
Providers Date of admission: 04/07/22 15:41 Expected date of discharge: 04/08/22 Attending physician: Diane Eddy DO Consults: 04/07/22 15:38 Consult Physician Urgent Consulting Provider: [facility] Consult Reason/Comments: Chest pain Do you want consulting provider notified?: Yes Consult Physician Urgent Consulting Provider: Gume Wang Consult Reason/Comments: Seizure Do you want consulting provider notified?: Yes Primary care physician: Stated None Hospital Course: Discharge Diagnosis: Reported Seizure activity, patient placed back on Dilantin as she reports taking 300 mg nightly for many years but states her prescription ran out almost one month ago and she has not been able to refill. patient to continue Keppra 1000 mg twice daily and Dilantin 300 mg nightly. Patient instructed she will need to follow up outpatient with neurology for prolonged EEG upon discharge from rehab and also establish care with PCP. History of seizure disorder, unclear etiology as patient reports previously being told seizures are not epileptic and may be related to emotions/stress. History of CAD Hypertension Hyperlipidemia Congestive heart failure, diastolic Paroxysmal Atrial fibrillation on anticoagulation with Eliquis COPD with continued nicotine dependence, recommend smoking cessation Lupus Factor V Leyden deficiency Bipolar disorder Alcohol abuse, recommend cessation of alcohol use Crack cocaine abuse, recommend cessation of drug use Hospital Course: patient is a very pleasant 52-year-old female with a past medical history of CAD, hypertension, hyperlipidemia, congestive heart failure, atrial fibrillation on anticoagulation with Eliquis, insulin-dependent diabetes mellitus,COPD, seizure disorder, lupus, factor V Leyden deficiency, bipolar disorder, alcohol abuse (reports last drink 03/27/22), crack cocaine use (reports last used 03/21/22), and tobacco dependence smoking a half a pack to a pack daily. Patient presented to the hospital on 04/07/22 with a chief complaint of chest pain and seizure activity. Patient reports she was standing outside smoking a cigarette at [facility] when she began to feel a tightness in her chest and states she threw her cigarette out and started walking into the facility when she reportedly fell to the floor and had reports of seizure activity. Patient states that she has been taking her Keppra as directed but ran out of her Dilantin almost a month ago and has not had refilled because she has not followed up with a neurologist in approximately 5 years and has not seen her PCP in quite some time either.patient reported pain to left wrist and knee, but denied having any other injuries and reports full resolution of previously reported chest tightness/pain and denied any shortness of breath. Patient underwent full evaluation in the emergency department.CBC, coags, d-dimer, and BMP were unremarkable.troponin negative at less than 0.0123 draws. liver profile revealing slightly elevated alkaline phosphatase of 137. Lipid profile unremarkable. Patient did have episodes of hyperglycemia with blood glucose levels 200 to 300s, patient has insulin pump in place and last 2 blood glucose level stable at [address] head and cervical spine were negative for acute process. EKG showing normal sinus rhythm at 96 bpm with no noted T-wave or ST abnormalities showing no signs of acute ischemia. Chest x-ray negative for acute process.x-ray left wrist and hand showing no definitive acute fracture or dislocation. X-ray left forearm negative for acute fracture or dislocation. patient was admitted under the services with consultation to neurology. Echocardiogram was completed revealing normal EF of 55-60% with no reported valvular or structural abnormalities. Patient declined evaluation by cardiology as patient received cardiac workup one week ago and declining outpatient and recommended stress test. Patient was monitored overnight and underwent evaluation by neurology. Patient had episode of reported drug-seeking behavior overnight, in which patient was reportedly asking for IV Benadryl and pain medication and when this was declined patient reported that she was having an ALLERGIC reaction and physician was brought to bedside to evaluate. Physician's reported findings negative for any signs of ALLERGIC reaction and patient was offered oral Benadryl instead of IV Benadryl and she refused. neurology evaluating patient recommending patient to resume Dilantin 300 mg nightly along with Keppra 1000 mg twice daily. Patient recommended to follow up outpatient with neurologist for extended EEG as well as for continued medication management. Patient also encouraged to establish and maintain care with PCP, quit smoking, quit drinking alcohol, and stop all illicit drug use such as crack cocaine. Patient is medically stable for discharge at this time. Discussed discharge plan and recommendations with patient and RN. All patient's questions were answered at this time and patient denied having any further needs or complaints. Patient medically stable to return to [facility]. Physical examination: Vital signs reviewed and stable. General: Nontoxic, no distress and appears stated age. Derm: Skin warm and dry, normal coloration for ethnicity. Head: Atraumatic, normocephalic and symmetric. Eyes: EOMs intact, no lid lag, and anicteric sclera Mouth: no lip lesions, mucus membranes moist Cardiovascular: regular rate and rhythm with normal S1S2, no murmur, positive posterior tibial pulses bilaterally, and cap refill < 2 seconds. Lungs: Respirations even, regular, and unlabored on room air. Lungs CTA bilaterally, no rhonchi, no rales, no wheezing, and no accessory muscle usage. Abdominal: soft, nontender to palpation, no guarding, no appreciable organomegaly Ext: ROM intact. No gross muscle atrophy, no edema, no contractures Neuro: Speech clear, face symmetrical and CN II-XII grossly intact with no noted focal neuro deficits Psych: Alert and oriented to person, place, time, and situation. Appropriate and pleasant affect. A total of 39 minutes of time were spent preparing this complex discharge summary. Pt was discharged on 04/08/22 at 11:31 AM. Patient Condition at Discharge: Stable Plan - Discharge Summary New Discharge Prescriptions: New Phenytoin Sodium Extended [Dilantin] 300 mg PO HS 30 Days #30 capsule Continue lisinopriL [Prinivil] 20 mg PO DAILY levETIRAcetam [Keppra] 1,000 mg PO BID Lurasidone [Latuda] 20 mg PO BID Levothyroxine Sodium [Synthroid] 50 mcg PO DAILY Insulin Glargine,Hum.rec.anlog [Lantus Solostar Pen] 36 units SQ HS hydroCHLOROthiazide 25 mg PO DAILY dilTIAZem HCL [Cardizem CD] 120 mg PO DAILY DULoxetine HCL [Cymbalta] 30 mg PO DAILY Atorvastatin [Lipitor] 80 mg PO HS Aspirin 81 mg PO DAILY Mesalamine [Lialda] 2.4 gm PO DAILY Loratadine 10 mg PO DAILY Budesonide-Formot 160-4.5 Mcg [Symbicort 160-4.5 Mcg Inhaler] 2 puff INHALATION RT-BID Isosorbide Mononitrate ER [Imdur] 30 mg PO DAILY INSULIN LISPRO (HumaLOG) [humaLOG] 12 units SQ TID-W/MEALS Apixaban [Eliquis] 5 mg PO BID Colace 50mg 50 mg PO DAILY carvediloL [Coreg] 25 mg PO BID traZODone HCL 150 mg PO HS Discharge Medication List Apixaban [Eliquis] 5 mg PO BID 03/30/22 [History] Aspirin 81 mg PO DAILY 03/30/22 [History] Atorvastatin [Lipitor] 80 mg PO HS 03/30/22 [History] Budesonide-Formot 160-4.5 Mcg [Symbicort 160-4.5 Mcg Inhaler] 2 puff INHALATION RT-BID 03/30/22 [History] Colace 50mg 50 mg PO DAILY 03/30/22 [History] DULoxetine HCL [Cymbalta] 30 mg PO DAILY 03/30/22 [History] INSULIN LISPRO (HumaLOG) [humaLOG] 12 units SQ TID-W/MEALS 03/30/22 [History] Insulin Glargine,Hum.rec.anlog [Lantus Solostar Pen] 36 units SQ HS 03/30/22 [History] Isosorbide Mononitrate ER [Imdur] 30 mg PO DAILY 03/30/22 [History] Levothyroxine Sodium [Synthroid] 50 mcg PO DAILY 03/30/22 [History] Loratadine 10 mg PO DAILY 03/30/22 [History] Lurasidone [Latuda] 20 mg PO BID 03/30/22 [History] Mesalamine [Lialda] 2.4 gm PO DAILY 03/30/22 [History] carvediloL [Coreg] 25 mg PO BID 03/30/22 [History] dilTIAZem HCL [Cardizem CD] 120 mg PO DAILY 03/30/22 [History] hydroCHLOROthiazide 25 mg PO DAILY 03/30/22 [History] levETIRAcetam [Keppra] 1,000 mg PO BID 03/30/22 [History] lisinopriL [Prinivil] 20 mg PO DAILY 03/30/22 [History] traZODone HCL 150 mg PO HS 03/30/22 [History] Phenytoin Sodium Extended [Dilantin] 300 mg PO HS 30 Days #30 capsule 04/08/22 [Rx] Follow up Appointment(s)/Referral(s): Gumaro Garay MD [REFERRING] - 1 Week Chuck Estrella MD [Medical Doctor] - 1 Week Activity/Diet/Wound Care/Special Instructions: Activity: As tolerated. Take breaks as needed. Diet: Heart healthy and carb consistent diet. Avoid salts, or foods with hidden salts such as canned or boxed foods and frozen dinners. Extra salt makes your heart work harder and traps the fluid in your body for longer. Special Instructions: Take all of your medications as directed and remember to keep all of your doctor's appointments and follow-up as needed. [place] state law states no driving until seizure free for 6 months. It is also advised that you avoid climbing ladders, operating dangerous or heavy machinery or unsupervised swimming until seizure free for 6 months. Thank you for allowing us to participate in your care, it was truly a pleasure having you for our patient!!! Discharge/Stand Alone Forms: AA [facility] Substance Abuse Facilities, Personal Teletype [employer] Discharge Disposition: HOME SELF-CARE
[2022-04-08 12:05] LABS: Glucose,Whole Blood 247 mg/dL (70-110)
[2022-04-08] MEDS: INSULIN ASPART (NovoLOG) 100 UNIT/ML VIAL SQ SCH ×2 (12:39→12:40)
[2022-04-09] MEDS ORDERED: BALSALAZIDE DISODIUM 750 MG CAPSULE PO SCH (09:00)
[2022-04-09] MEDS ORDERED: lisinopriL 20 MG TAB PO SCH (09:00)
== END 2022-04-08 14:35 | disposition home or self-care (01) ==
LOC: EC 13:25 → 6NMEDSUR 15:41
PROVIDERS: ADMIT Internal Medicine; ATTEND Internal Medicine
DX: G40.909 Epilepsy, unspecified, not intractable, without status epilepticus (principal); I25.10 Atherosclerotic heart disease of native coronary artery without angina pectoris; E78.5 Hyperlipidemia, unspecified; I11.0 Hypertensive heart disease with heart failure; I50.30 Unspecified diastolic (congestive) heart failure; I48.0 Paroxysmal atrial fibrillation; J44.9 Chronic obstructive pulmonary disease, unspecified; F17.210 Nicotine dependence, cigarettes, uncomplicated; D68.51 Activated protein C resistance; F31.9 Bipolar disorder, unspecified; F10.20 Alcohol dependence, uncomplicated; F14.10 Cocaine abuse, uncomplicated; E11.65 Type 2 diabetes mellitus with hyperglycemia; R07.89 Other chest pain; T42.0X6A Underdosing of hydantoin derivatives, initial encounter; Z91.128 Patient's intentional underdosing of medication regimen for other reason; M25.532 Pain in left wrist; M25.562 Pain in left knee; R74.8 Abnormal levels of other serum enzymes; Z76.5 Malingerer [conscious simulation]; R21 Rash and other nonspecific skin eruption; R04.2 Hemoptysis; I25.2 Old myocardial infarction; E66.9 Obesity, unspecified; Z68.37 Body mass index [BMI] 37.0-37.9, adult; D64.9 Anemia, unspecified; S09.90XA Unspecified injury of head, initial encounter; W18.30XA Fall on same level, unspecified, initial encounter; Z71.6 Tobacco abuse counseling; Z71.51 Drug abuse counseling and surveillance of drug abuser; Z71.41 Alcohol abuse counseling and surveillance of alcoholic; Z79.01 Long term (current) use of anticoagulants; Z86.711 Personal history of pulmonary embolism; Z90.49 Acquired absence of other specified parts of digestive tract; Z90.710 Acquired absence of both cervix and uterus; Z96.41 Presence of insulin pump (external) (internal); Z79.4 Long term (current) use of insulin; Z79.82 Long term (current) use of aspirin; Z79.899 Other long term (current) drug therapy; Z79.51 Long term (current) use of inhaled steroids; Z79.890 Hormone replacement therapy; Z88.8 Allergy status to other drugs, medicaments and biological substances; Z91.041 Radiographic dye allergy status; Z88.5 Allergy status to narcotic agent; Z91.013 Allergy to seafood
CPT/HCPCS: 96376 ×2; 96372; 96361; 96374; 96375; 99285; 36415; 94640; 93005; 93306; 85379; 80061; 80053; 80048; 85652; 80177; 83735; 84484; 85025 ×2; 85610; 85730; 86140; 73090; 73110; 73130; 73562; 71046; 72125; 70450; G0378 ×2; J2405; J1642; J1170 ×2